=== PATIENT | female | born 1940 | race Caucasian/White ===

== ENCOUNTER 2021-04-11 12:46 | Inpatient (IN) ==
--- NOTE | 2021-04-11 13:46 | Emergency Department Note ---
Impression & Plan Nausea, Weakness, COVID-19 ED Provider Note INFORMANT: Patient ED PROVIDER(S): Gaston Knapp MD CHIEF COMPLAINT: Nausea PLAN: Disposition: Admitted Condition: Good Outpatient prescription management: none Referral: None MEDICAL DECISION MAKING: Patient presented to emergency department because of concerns about nausea. She was Covid positive last week. Per protocol a repeat Covid test was done and was positive. The patient was hydrated. She was given Zofran. Her chest x-ray was concerning for infiltrates. Her CBC and chemistry panels were unremarkable. The patient's ECG showed a sinus rhythm. The patient's oxygen saturation did drop down. She did require supplemental oxygen. The patient was given IV dexamethasone. I did discuss this with the patient's son who is a physician. The patient will need to be admitted. Consultation was made with the [facility] service. The patient was discussed with Dr. Celestin and admitted for further management. Triage Nursing notes reviewed and agree them. Vital Signs: reviewed and remarkable for no significant abnormalities Differential diagnosis: Complication of COVID-19, infection, dehydration, metabolic abnormality, hypo/hyperglycemia, electrolyte disturbance, anemia, hypoxia, cardiac sources, intracerebral event, toxicologic, neurologic, as well as other pathologies. Diagnostics interpreted by me: ECG: Sinus rhythm with PVCs at 97 bpm. QT interval [address] elevation or depression. No PVCs or PACs. Cardiac Monitoring: Cardiac monitoring ordered by me: The patient was placed on continuous cardiac monitoring and observed. It revealed a normal sinus rhythm at 88 beats per minute . Imaging studies: Chest x-ray is concerning for atypical infiltrates consistent with Covid CT imaging of the chest does not reveal any evidence of clear pulmonary embolism. Radiology concerned about timing of bolus. However the patient does have bilateral infiltrates concerning for Covid pneumonia. HPI: The patient is a 80 year old female who presents to the Emergency Room with complaints of nausea. This started over the last few days and is persisting despite compazine. The patient also notes the following associated symptoms, cough and weakness. The patient has been taking hydroxychloroquine for rel ieving factors. Current pain is rated as 0/10. She also noted diarrhea which changed to constipation. The patient was diagnosed with Covid last week and admitted to the [facility]. She stated she received a bag of fluids and nothing more. Her son who is a physician in [place] prescribed her the hydroxychloroquine. The patient think she has been symptomatic for over 10 days. Pt denies LOC, headache, fevers, chills, diaphoresis, visual changes, neck pain, chest pain, breathing difficulties, vomiting, abdominal pain, back pain, melena, hematochezia, urinary symptoms, numbness, lymphadenopathy, rash, or other complaints. ROS: See above HPI for pertinent positives & negatives. A total of 10 systems reviewed and were otherwise negative. PAST MEDICAL HISTORY:See Below , sleep apnea, COVID-19 PAST SURGICAL HISTORY:See Below, FAMILY HISTORY:See Below SOCIAL HISTORY:See Below, retired HOME MEDICATIONS:See Below ALLERGIES:See Below VITALS:See Below PHYSICAL EXAMINATION: GENERAL: Awake, alert, mildly ill-appearing, in no distress HENT: Normocephalic, atraumatic. Oropharynx unremarkable. EYES: Normal conjunctiva. Sclera non-icteric. NECK: Inspection normal. Non-tender. Supple. No nuchal rigidity. FROM. No masses. RESPIRATORY: Clear to auscultation. No wheezes. No rales. Normal respiratory effort. CARDIAC: Normal rate. Normal rhythm. No murmurs. No rubs. Extremities warm and well perfused. Pulses equal. No JVD. GI: Soft, non-distended. No tenderness to palpation. No rebound or guarding. No masses. RECTAL: Deferred. MUSCULOSKELETAL: Atraumatic. Chest examination reveals no tenderness. The back is symmetrical on inspection without obvious abnormality. There is no CVA tenderness to palpation. No joint edema. LOWER EXTREMITIES: Calves are equal size bilaterally and non-tender. Trace edema. No discoloration. NEURO: Normal sensorium. No sensory or motor deficits noted. SKIN: No rash or jaundice noted. Gaston Knapp MD Past Med/Surg History Medical History Coughing Dyspnea on exertion Morbid obesity due to excess calories Severe obstructive sleep apnea Upper airway cough syndrome Social History Smoking Status: Former smoker Tobacco Type: Cigarettes Feels Safe at Home: Yes Allergies Allergies Allergy/AdvReac Type Severity Reaction Status Date / Time codeine Allergy Mild Unknown Verified 04/11/21 16:08 Home Meds Home Medications Medication Instructions Recorded Confirmed bupropion HCl 150 mg 24 hr tablet, 150 mg PO DAILY 04/11/21 04/11/21 extended release difluprednate 0.05 % eye drops 1 drp OPL UD 04/11/21 04/11/21 (Durezol) hydroxychloroquine 200 mg tablet 200 mg PO BID 04/11/21 04/11/21 olmesartan 20 mg tablet 20 mg PO DAILY 04/11/21 04/11/21 paroxetine HCl 10 mg tablet 10 mg PO DAILY 04/11/21 04/11/21 prochlorperazine maleate 10 mg 10 mg PO Q6 04/11/21 04/11/21 tablet Results & Data (ED) Vital Signs Vital Signs - 24 hr 04/11/21 12:51 04/11/21 13:46 04/11/21 14:01 Temperature 36.9 C Temperature Source Temporal Artery Scan Pulse Rate 88 100 H 96 H Pulse Rate [Right Finger] Pulse Rate from SpO2 Sensor 94 H Respiratory Rate 20 30 H 24 Respiratory Effort / Characteristics Non-Labored Spontaneous Respiratory Depth Normal Blood Pressure 114/64 Blood Pressure [Left Arm] Blood Pressure Mean 80 81 Blood Pressure Mean [Left Arm] Pulse Oximetry 95 92 91 Oxygen Delivery Method Room Air Room Air Room Air Oxygen Flow Rate Sepsis Recent Fever Within 48 Hours No Sepsis New/Unexplained Change in Mental Status N/A Sepsis Action Taken by Nursing No Action Required 04/11/21 15:02 04/11/21 15:10 04/11/21 15:25 Temperature Temperature Source Pulse Rate 90 94 H Pulse Rate [Right Finger] Pulse Rate from SpO2 Sensor 92 H 93 H 119 H Respiratory Rate 22 22 32 H Respiratory Effort / Characteristics Respiratory Depth Blood Pressure Blood Pressure [Left Arm] Blood Pressure Mean Blood Pressure Mean [Left Arm] Pulse Oximetry 91 93 83 L Oxygen Delivery Method Room Air Oxygen Flow Rate Sepsis Recent Fever Within 48 Hours Sepsis New/Unexplained Change in Mental Status Sepsis Action Taken by Nursing 04/11/21 15:30 04/11/21 15:40 04/11/21 15:50 Temperature Temperature Source Pulse Rate 105 H 96 H 95 H Pulse Rate [Right Finger] 96 H Pulse Rate from SpO2 Sensor 105 H 79 84 Respiratory Rate 24 24 31 H Respiratory Effort / Characteristics Spontaneous Labored Respiratory Depth Blood Pressure Blood Pressure [Left Arm] 110/64 Blood Pressure Mean Blood Pressure Mean [Left Arm] 79 Pulse Oximetry 93 95 96 Oxygen Delivery Method Nasal Cannula Nasal Cannula Nasal Cannula Oxygen Flow Rate 2 2 2 Sepsis Recent Fever Within 48 Hours Sepsis New/Unexplained Change in Mental Status Sepsis Action Taken by Nursing 04/11/21 16:01 04/11/21 17:01 04/11/21 18:03 Temperature Temperature Source Pulse Rate 92 H 93 H 90 Pulse Rate [Right Finger] Pulse Rate from SpO2 Sensor 91 H 89 87 Respiratory Rate 26 H 30 H 24 Respiratory Effort / Characteristics Respiratory Depth Blood Pressure 109/73 105/63 Blood Pressure [Left Arm] Blood Pressure Mean 85 77 Blood Pressure Mean [Left Arm] Pulse Oximetry 97 98 100 Oxygen Delivery Method Nasal Cannula Nasal Cannula Nasal Cannula Oxygen Flow Rate 2 2 2 Sepsis Recent Fever Within 48 Hours Sepsis New/Unexplained Change in Mental Status Sepsis Action Taken by Nursing 04/11/21 19:43 04/11/21 19:50 04/11/21 20:00 Temperature Temperature Source Pulse Rate 85 83 93 H Pulse Rate [Right Finger] Pulse Rate from SpO2 Sensor 66 70 93 H Respiratory Rate 22 22 17 Respiratory Effort / Characteristics Respiratory Depth Blood Pressure Blood Pressure [Left Arm] Blood Pressure Mean Blood Pressure Mean [Left Arm] Pulse Oximetry 96 95 95 Oxygen Delivery Method Nasal Cannula Nasal Cannula Nasal Cannula Oxygen Flow Rate 2 2 2 Sepsis Recent Fever Within 48 Hours Sepsis New/Unexplained Change in Mental Status Sepsis Action Taken by Nursing 04/11/21 20:10 Temperature Temperature Source Pulse Rate 88 Pulse Rate [Right Finger] Pulse Rate from SpO2 Sensor 87 Respiratory Rate 22 Respiratory Effort / Characteristics Respiratory Depth Blood Pressure Blood Pressure [Left Arm] Blood Pressure Mean Blood Pressure Mean [Left Arm] Pulse Oximetry 95 Oxygen Delivery Method Nasal Cannula Oxygen Flow Rate 2 Sepsis Recent Fever Within 48 Hours Sepsis New/Unexplained Change in Mental Status Sepsis Action Taken by Nursing Laboratory Data Result diagrams: 04/11/21 15:04 04/11/21 15:04 Lab Results 04/11/21 04/11/21 04/11/21 Range/Units 14:10 14:10 15:04 WBC 6.54 (4.8-10.8) K/uL RBC 4.45 (4.2-5.4) M/uL Hgb 13.6 (12.0-16.0) g/dL Hct 40.6 (37-47) % MCV 91.2 (80-100) fL MCH 30.6 (25-34) pg MCHC 33.5 (32-36) g/dL RDW Std Deviation 44.2 (36.4-46.3) fL RDW Coeff of Kelvin 13.2 (11.5-14.5) % Plt Count 280 (130-400) K/uL MPV 10.1 (7.4-10.4) fL Immature Gran % (Auto) 0.3 % Neut % (Auto) 71.7 % Lymph % (Auto) 15.7 % [place] % (Auto) 11.9 % Eos % (Auto) 0.2 % Baso % (Auto) 0.2 % Neut # (Auto) 4.69 (1.4-6.5) K/uL Lymph # (Auto) 1.03 L (1.2-3.4) K/uL Forsyth # (Auto) 0.78 H (0.11-0.59) K/uL Eos # (Auto) 0.01 (0-0.5) K/uL Baso # (Auto) 0.01 (0-0.2) K/uL Immature Gran # (Auto) 0.02 (0.00-0.02) K/uL Sodium (136-145) mmol/L Potassium (3.5-5.1) mmol/L Chloride (98-107) mmol/L Carbon Dioxide (21-32) mmol/L Anion Gap (3-11) BUN (7-18) mg/dl Creatinine (0.6-1.2) mg/dl Est Cr Clr Drug Dosing ml/min Est GFR ( Amer) ml/min Est GFR (Non-Af Amer) ml/min BUN/Creatinine Ratio (10-20) Glucose (70-99) mg/dl Calcium (8.5-10.1) mg/dl Magnesium (1.8-2.4) mg/dl Total Bilirubin (0.2-1) mg/dl Direct Bilirubin (0-0.2) mg/dl AST (15-37) U/L ALT (12-78) U/L Alkaline Phosphatase (45-117) U/L Troponin I (0-0.045) ng/ml Total Protein (6.4-8.2) gm/dl Albumin (3.4-5.0) gm/dl Globulin (2.5-4.0) gm/dl Albumin/Globulin Ratio (0.9-2) Procalcitonin (0-0.5) ng/ml TSH (0.300-4.500) uIu/ml Free T4 (0.8-1.6) ng/dl COVID-19 Eval Order Covid19 at [facility] SARS-CoV-2 (PCR) POSITIVE A* (Negative) 04/11/21 04/11/21 Range/Units 15:04 15:04 WBC (4.8-10.8) K/uL RBC (4.2-5.4) M/uL Hgb (12.0-16.0) g/dL Hct (37-47) % MCV (80-100) fL MCH (25-34) pg MCHC (32-36) g/dL RDW Std Deviation (36.4-46.3) fL RDW Coeff of Kelvin (11.5-14.5) % Plt Count (130-400) K/uL MPV (7.4-10.4) fL Immature Gran % (Auto) % Neut % (Auto) % Lymph % (Auto) % Forsyth % (Auto) % Eos % (Auto) % Baso % (Auto) % Neut # (Auto) (1.4-6.5) K/uL Lymph # (Auto) (1.2-3.4) K/uL Forsyth # (Auto) (0.11-0.59) K/uL Eos # (Auto) (0-0.5) K/uL Baso # (Auto) (0-0.2) K/uL Immature Gran # (Auto) (0.00-0.02) K/uL Sodium 137 (136-145) mmol/L Potassium 3.8 (3.5-5.1) mmol/L Chloride 104 (98-107) mmol/L Carbon Dioxide 29 (21-32) mmol/L Anion Gap 4.0 (3-11) BUN 28 H (7-18) mg/dl Creatinine 1.01 (0.6-1.2) mg/dl Est Cr Clr Drug Dosing 47.9 ml/min Est GFR ( Amer) 61.3 ml/min Est GFR (Non-Af Amer) 52.9 ml/min BUN/Creatinine Ratio 28.0 H (10-20) Glucose 99 (70-99) mg/dl Calcium 8.7 (8.5-10.1) mg/dl Magnesium 2.3 (1.8-2.4) mg/dl Total Bilirubin 0.5 (0.2-1) mg/dl Direct Bilirubin 0.1 (0-0.2) mg/dl AST 49 H (15-37) U/L ALT 48 (12-78) U/L Alkaline Phosphatase 86 (45-117) U/L Troponin I < 0.015 (0-0.045) ng/ml Total Protein 6.4 (6.4-8.2) gm/dl Albumin 2.7 L (3.4-5.0) gm/dl Globulin 3.7 (2.5-4.0) gm/dl Albumin/Globulin Ratio 0.7 L (0.9-2) Procalcitonin < 0.05 (0-0.5) ng/ml TSH 0.009 L (0.300-4.500) uIu/ml Free T4 1.96 H (0.8-1.6) ng/dl COVID-19 Eval Order SARS-CoV-2 (PCR) (Negative) Administered Medications Sodium Chloride (Nss 1000ml) 1,000 mls @ 125 mls/hr IV .Q8H STA Stop: 04/11/21 23:16 Last Infusion: 04/11/21 17:42 Dose: 0 mls/hr Documented by: [id number] Admin: 04/11/21 16:46 Dose: 125 mls/hr Documented by: [id number] Discontinued Medications Dexamethasone Sodium Phosphate (DexamethasonePf 10 Mg/Ml Vial) 6 mg IV NOW ONE Stop: 04/11/21 16:32 Last Admin: 04/11/21 16:44 Dose: 6 mg Documented by: [id number] Sodium Chloride (Nss 1000ml) 500 mls @ 999 mls/hr IV .Q31M ONE Stop: 04/11/21 15:47 Last Infusion: 04/11/21 16:18 Dose: 0 mls/hr Documented by: [id number] Admin: 04/11/21 15:47 Dose: 999 mls/hr Documented by: [id number] Remdesivir 200 mg/ Sodium (Chloride) 250 mls @ 125 mls/hr IV ONE STA; Protocol Stop: 04/11/21 19:38 Last Admin: 04/11/21 18:14 Dose: 125 mls/hr Documented by: [id number] Ioversol (Optiray 320 125ml) 80 ml IV ONCE ONE Stop: 04/11/21 17:36 Last Admin: 04/11/21 17:36 Dose: 80 ml Documented by: [id number] Ondansetron HCl (Ondansetron Inj 2 Mg/Ml 2 Ml Vial) 4 mg IV NOW STA Stop: 04/11/21 15:17 Last Admin: 04/11/21 15:45 Dose: 4 mg Documented by: [id number] Imaging Data Radiologist's Impression: Chest X-Ray 04/11/21 13:14 XR chest 1V portable CLINICAL HISTORY: nausea, +COVID COMPARISON STUDY: September 14, 2019 FINDINGS: No pneumothorax. No pleural effusion. Mild atelectasis/infiltrates are seen within bilateral basis. Also ill-defined opacities are seen at the peripheral aspect of the right mid to lower lung. Diffuse reticular nodular prominence of pulmonary interstitium are seen within bilateral mid to lower lungs. Cardiomediastinal silhouette is within normal limits in size. No significant pulmonary vascular congestion.. Aorta is calcified. Osseous structures: Osteopenia. Degenerative changes of the spine. IMPRESSION: 1. Opacities at bilateral bases and peripheral aspect of the right mid to lower lung might represent infiltrates. Possible atelectasis at bilateral bases. Above-mentioned findings could represent atypical pneumonia/COVID. 2. Atherosclerosis. ACT 112: Negative or not required by law. The above report was generated using voice recognition software. It may contain grammatical, syntax or spelling errors. Electronically signed by: Maria Fernanda Sanchez DO 04/11/2021 2:13 PM Chest CTA 04/11/21 16:31 CT ANGIOGRAM OF THE CHEST CLINICAL HISTORY: hypoxia, +covid COMPARISON STUDY: No previous studies for comparison. TECHNIQUE: Following the IV administration of 80 mL of Optiray, CT angiogram of the thorax was performed from the thoracic inlet to the lung bases utilizing the pulmonary embolus protocol. Images are reviewed in the axial, sagittal, and coronal planes. IV contrast was administered without complication. MIP imaging was performed. A dose lowering technique was utilized adhering to the principl es of VALENTE. CT DOSE: 673.53 mGy.cm FINDINGS: Insufficient opacification for adequate evaluation for pulmonary embolus. Possibly flow artifact is seen within left upper lobe pulmonary artery branches. No evidence of right heart strain. Main pulmonary artery is nondilated. Heart is normal in size without pericardial effusion. Mild coronary calcifications are seen. There is no axillary, supra clavicle or internal mammary lymphadenopathy seen. Innumerable pulmonary nodules are seen within mediastinum and right hilum measuring up to 1.0 cm in short axis (4/169). Visualized portion of thyroid gland is increase in size with few ill-defined partially calcified nodules within right thyroid lobe. Evaluation is limited due to motion artifact as well as some hardening artifact from intravenous contrast within vascular structures and from overlying metallic density. Esophagus is patulous. Moderate hiatal hernia is seen. Thoracic aorta is normal in caliber, slightly tortuous with scattered ca lcifications of its wall. Tracheobronchial tree is patent. Patchy groundglass opacities are seen predominantly within bilateral lower lungs in mostly peripheral distribution which could be seen in atypical pneumonia or/port.. Mild architectural distortion is seen at subpleural aspect of the bilateral lower lobes. No pleural effusions are visualized. Limited evaluation of upper abdominal viscera shows nodularity of the left adrenal gland and course calcification within partially visualized liver parenchyma. Osseous structures: Osteopenia and multilevel degenerative changes of the spine. No definite aggressive osseous lesions are seen. IMPRESSION: 1. No definite filling defect is seen within pulmonary artery to suggest pulmonary embolus however opacification within main pulmonary artery is insufficient for adequate pulmonary embolus evaluation. 2. Patchy groundglass opacities within bilateral lower lobes in predominantly peripheral distribution which could be seen in atypical pneumonia/COVID. 3. Moderate hiatal hernia. 4. Ill-defined calcified nodules within right thyroid lobe as detailed above. Please correlate above-mentioned findings with prior history of thyroid disease. Further evaluation with thyroid ultrasound might be considered if clinically indicated. 5. Multiple mediastinal and hilar lymph nodes, could be reactive. ACT 112: Negative or not required by law. The above report was generated using voice recognition software. It may contain grammatical, syntax or spelling errors. Electronically signed by: Maria Fernanda Sanchez DO 04/11/2021 6:09 PM Discharge Plan Visit Data Chief Complaint: Nausea Stated Complaint: NAUSEATED, POSITIVE COVID ED Provider: Gaston Knapp Discharge Problem: Nausea, Weakness, COVID-19 Forms Stand Alone Forms: My [facility] Prescriptions Prescriptions: No Action paroxetine HCl 10 mg tablet 10 mg PO DAILY RF: 0 prochlorperazine maleate 10 mg tablet 10 mg PO Q6 RF: 0 hydroxychloroquine 200 mg tablet 200 mg PO BID RF: 0 olmesartan 20 mg tablet 20 mg PO DAILY RF: 0 bupropion HCl 150 mg tablet extended release 24 hr 150 mg PO DAILY RF: 0 Durezol 0.05 % drops 1 drp OPL UD RF: 0 Referrals Referrals: Omar James [Primary Care Provider] -
--- NOTE | 2021-04-11 14:15 | XRay Report ---
XR chest 1V portable CLINICAL HISTORY: nausea, +COVID COMPARISON STUDY: September 14, 2019 FINDINGS: No pneumothorax. No pleural effusion. Mild atelectasis/infiltrates are seen within bilateral basis. Also ill-defined opacities are seen at the peripheral aspect of the right mid to lower lung. Diffuse reticular nodular prominence of pulmonary interstitium are seen within bilateral mid to lowe r lungs. Cardiomediastinal silhouette is within normal limits in size. No significant pulmonary vascular congestion.. Aorta is calcified. Osseous structures: Osteopenia. Degenerative changes of the spine. IMPRESSION: 1. Opacities at bilateral bases and peripheral aspect of the right mid to lower lung might represent infiltrates. Possible atelectasis at bilateral bases. Above-mentioned findings could represent atypi neel pneumonia/COVID. 2. Atherosclerosis. ACT 112: Negative or not required by law. The above report was generated using voice recognition software. It may contain grammatical, syntax o r spelling errors. Electronically signed by: Maria Fernanda Sanchez DO 04/11/2021 2:13 PM
[2021-04-11] MEDS ORDERED: ONDANSETRON INJ 2 MG/ML 2 ML VIAL IV STA (15:16)
[2021-04-11] MEDS ORDERED: SODIUM CHLORIDE 0.9% 1000ML 1,000 ML IV STA (15:17)
[2021-04-11] MEDS ORDERED: SODIUM CHLORIDE 0.9% 1000ML 500 ML IV ONE (15:17)
[2021-04-11 15:33] LABS: Basophils # (auto) 0.01 K/uL (0-0.2); Basophils % (auto) 0.2 %; Eosinophils # (auto) 0.01 K/uL (0-0.5); Eosinophils % (auto) 0.2 %; Hematocrit (blood only) 40.6 % (37-47); Hemoglobin 13.6 g/dL (12.0-16.0); Immature Granulocytes # (auto) 0.02 K/uL (0.00-0.02); Immature Granulocytes % (auto) 0.3 %; Lymphocytes # (auto) 1.03 K/uL (1.2-3.4); Lymphocytes % (auto) 15.7 %; Mean Corpuscular Hemoglobin 30.6 pg (25-34); Mean Corpuscular Hgb Conc 33.5 g/dL (32-36); Mean Corpuscular Volume 91.2 fL (80-100); Mean Platelet Volume 10.1 fL (7.4-10.4); Monocytes # (auto) 0.78 K/uL (0.11-0.59); Monocytes % (auto) 11.9 %; Neutrophils # (auto) 4.69 K/uL (1.4-6.5); Neutrophils % (auto) 71.7 %; Platelet Count 280 K/uL (130-400); RDW Coefficient of Variation 13.2 % (11.5-14.5); RDW Standard Deviation 44.2 fL (36.4-46.3); Red Blood Count 4.45 M/uL (4.2-5.4); White Blood Count 6.54 K/uL (4.8-10.8)
[2021-04-11 16:02] LABS: Alanine Aminotransferase 48 U/L (12-78); Albumin Level 2.7 gm/dl (3.4-5.0); Aspartate Aminotransferase 49 U/L (15-37); Blood Urea Nitrogen 28 mg/dl (7-18); Calcium 8.7 mg/dl (8.5-10.1); Carbon Dioxide 29 mmol/L (21-32); Chloride 104 mmol/L (98-107); Creatinine Clr Calc Pharmacy 47.9 ml/min; Est GFR (African American) 61.3 ml/min; Est GFR (Non-African American) 52.9 ml/min; Glucose 99 mg/dl (70-99); Magnesium 2.3 mg/dl (1.8-2.4); Potassium 3.8 mmol/L (3.5-5.1); Sodium 137 mmol/L (136-145)
[2021-04-11 16:13] LABS: Albumin Globulin Ratio 0.7 (0.9-2); Alkaline Phosphatase 86 U/L (45-117); Bilirubin,Total 0.5 mg/dl (0.2-1); Globulin 3.7 gm/dl (2.5-4.0); Thyroid Stimulating Hormone 0.009 uIu/ml (0.300-4.500); Total Protein 6.4 gm/dl (6.4-8.2); Troponin I < 0.015 ng/ml (0-0.045)
[2021-04-11 16:28] LABS: T4 Free Thyroxine 1.96 ng/dl (0.8-1.6)
[2021-04-11] MEDS ORDERED: dexAMETHasone**PF** 10 MG/ML VIAL IV ONE (16:31)
--- NOTE | 2021-04-11 17:33 | History & Physical Report ---
Date of Service April 11, 2021 Assessment & Plan (1) COVID-19: (2) Upper airway cough syndrome: (3) Wheezing: (4) Weakness: (5) Nausea: (6) Dyspnea on exertion: (7) Morbid obesity due to excess calories: (8) Sick-euthyroid syndrome: Plan: Remdesivir, Dex, O2, Continue OP meds, Monitor daily labs, Isolation. Pulm c/s if declines, CPAP, Inhalers, DVT Pfx CXR-Opacities at bilateral bases and peripheral aspect of the right mid to lower lung might represent infiltrates. Possible atelectasis at bilateral bases. Above-mentioned findings could represent atypical pneumonia/COVID. History of Present Illness Chief Complaint: Nausea, Weakness, Cough, SOB Primary Care Provider: Omar James 80 yo female c PMH of Anxiety, HTN, Obesity, OSAS, and COVID-19 who presents to the Emergency Room with complaints of nausea. This started over the last few days and is persisting despite compazine. The patient also notes the following associated symptoms, cough and weakness. The patient has been taking hydroxychloroquine and zinc which was prescribed by her son. She noted diarrhea which changed to constipation. The patient was diagnosed with Covid last week and admitted to the [facility] on 04/06. There she had N/V/D and was DCd on 04/08. She never required Dex or Remdesivir because her O2 sats were 94% or greater. It was reported by EMS prior to arriving at [facility] that she was 88%, but all POX at [facility] were in the mid to high 90s. She reports that since Friday she's been declining. PMH-Anxiety, HTN, Obesity, Covid PSH-Breast Biopsy Soc-Former tobacco, quit January 2004, Occas etoh FH-Sister, Daughter, and Niece all c Breast CA Allergies Allergy/AdvReac Type Severity Reaction Status Date / Time codeine Allergy Mild Unknown Verified 04/11/21 16:08 Home Medications Medication Instructions Recorded Confirmed Type bupropion HCl 150 mg 24 hr tablet, 150 mg PO DAILY 04/11/21 04/11/21 History extended release difluprednate 0.05 % eye drops 1 drp OPL UD 04/11/21 04/11/21 History (Durezol) hydroxychloroquine 200 mg tablet 200 mg PO BID 04/11/21 04/11/21 History olmesartan 20 mg tablet 20 mg PO DAILY 04/11/21 04/11/21 History paroxetine HCl 10 mg tablet 10 mg PO DAILY 04/11/21 04/11/21 History prochlorperazine maleate 10 mg 10 mg PO Q6 04/11/21 04/11/21 History tablet Past Med/Surg History Medical History Coughing Dyspnea on exertion Morbid obesity due to excess calories Severe obstructive sleep apnea Upper airway cough syndrome Social History Smoking Status: Former smoker Tobacco Type: Cigarettes Feels Safe at Home: Yes Review of Systems Review of Systems: ROS-No Headache, No Visual Changes, + Nausea, No Vomiting, No Fever, No Chills, No Neck Pain or Stiffness, No Chest Pain, No Palpitations, + SOB, + KUMAR, + Cough, No Sputum, + Wheezing, No Abdominal Pain, No Diarrhea, No Hematemesis, No Hemoptysis, No Unexpected Weight Loss, No Flank pain, No Melena, No Hematochezia, No Frequency, No Urgency, No Burning, No Hematuria, No Rashes, No Diaphoresis. Appetite is decreased, +weakness. Physical Exam Physical Exam: Physical Exam Gen-AAO x 3, NAD, Afebrile, Audible wheeze Head-NCAT, EOMI, PERRLA, Anicteric Sclera, No Posterior Pharyngeal Erythema Neck-Supple, No JVD, No Thyromegaly, No Masses, No LAD, No Bruits Lungs-Coarse BS Bilaterally, No Rales, No Rhonchi, + Wheezing, No Crepitus Chest-No S4, +S1, +S2, No S3, No Murmurs, No Rubs, No Gallops, No Ectopy Abdomen-Soft, Bowel Sounds Present, Non Tender, Non Distended, No Hepatomegaly, No Splenomegaly, No Palpable Masses, No Rebound, No Rigidity, No Guarding Musculoskeletal-Full Range of Motion Bilaterally, No CVAT Extremities-No Cyanosis, No Clubbing, No Edema Nuero-Cranial Nerves II-XII grossly intact, Motor WNL, DTRs WNL, Strength WNL, Non Focal Psych-Normal Mood Results & Data Results & Data ([facility]) Vital Signs (Past 12 Hours) Vital Signs Temp Pulse Pulse Resp BP BP Pulse Ox 04/11/21 17:01 93 H 30 H 105/63 98 04/11/21 16:01 92 H 26 H 109/73 97 04/11/21 15:50 95 H 96 H 31 H 110/64 96 04/11/21 15:40 96 H 24 95 04/11/21 15:30 105 H 24 93 04/11/21 15:25 32 H 83 L 04/11/21 15:10 94 H 22 93 04/11/21 15:02 90 22 91 04/11/21 14:01 96 H 24 91 04/11/21 13:46 100 H 30 H 92 04/11/21 12:51 36.9 C 88 20 114/64 95 Laboratory Results Allergies codeine Allergy (Mild, Verified 04/11/21 16:08) Unknown Height/Weight/Isolation Height 5 ft Weight 99.6 kg Isolation Type COVID Precautions Chemistry 04/11/21 15:04 Sodium 137 Potassium 3.8 Chloride 104 Carbon Dioxide 29 Anion Gap 4.0 BUN 28 H Creatinine 1.01 Glucose 99 TSH low, T4 slightly high Procal Negative Code Status & VTE Plan Code Status full
[2021-04-11] MEDS ORDERED: OPTIRAY 320 125ml IV ONE (17:35)
[2021-04-11] MEDS ORDERED: REMDESIVIR 200 MG in SODIUM CHLORIDE 0.9% 210 ML IV STA (17:39)
--- NOTE | 2021-04-11 17:55 | Electrocardiogram Report ---
Test Reason : Blood Pressure : / mmHG Vent. Rate : 097 BPM Atrial Rate : 097 BPM P-R Int : 178 ms QRS Dur : 076 ms QT Int : 344 ms P-R-T Axes : 069 041 064 degrees QTc Int : 436 ms Poor data quality, interpretation may be adversely affected Sinus rhythm with frequent Premature ventricular complexes Low voltage QRS Borderline ECG No previous ECGs available Confirmed by Elian Butts ([id number]) on 04/11/2021 5:55:15 PM Referred By: Confirmed By:Elian Butts
[2021-04-11 18:04] LABS: Bilirubin Direct 0.1 mg/dl (0-0.2)
--- NOTE | 2021-04-11 18:11 | CT Scan Report ---
CT ANGIOGRAM OF THE CHEST CLINICAL HISTORY: hypoxia, +covid COMPARISON STUDY: No previous studies for comparison. TECHNIQUE: Following the IV administration of 80 mL of Optiray, CT angiogram of the thorax was perfor med from the thoracic inlet to the lung bases utilizing the pulmonary embolus protocol. Images are re viewed in the axial, sagittal, and coronal planes. IV contrast was administered without complication. MIP imaging was performed. A dose lowering technique was utilized adhering to the principles of ALA RA. CT DOSE: 673.53 mGy.cm FINDINGS: Insufficient opacification for adequate evaluation for pulmonary embolus. Possibly flow artifact is s een within left upper lobe pulmonary artery branches. No evidence of right heart strain. Main pulmonary artery is nondilated. Heart is normal in size without pericardial effusion. Mild coronary calcifications are seen. There is no axillary, supra clavicle or internal mammary lymphadenopathy seen. Innumerable pulmonary nodules are seen within mediastinum and right hilum measuring up to 1.0 cm in short axis (4/169). Visualized portion of thyroid gland is increase in size with few ill-defined partially calcified nodu les within right thyroid lobe. Evaluation is limited due to motion artifact as well as some hardening artifact from intravenous contrast within vascular structures and from overlying metallic density. Esophagus is patulous. Moderate hiatal hernia is seen. Thoracic aorta is normal in caliber, slightly tortuous with scattered calcifications of its wall. Tracheobronchial tree is patent. Patchy groundglass opacities are seen predominantly within bilateral lower lungs in mostly peripheral distribution which could be seen in atypical pneumonia or/port.. Mild architectural distortion is seen at subpleural aspect of the bilateral lower lobes. No pleural effusions are visualized. Limited evaluation of upper abdominal viscera shows nodularity of the left adrenal gland and course c alcification within partially visualized liver parenchyma. Osseous structures: Osteopenia and multilevel degenerative changes of the spine. No definite aggressi ve osseous lesions are seen. IMPRESSION: 1. No definite filling defect is seen within pulmonary artery to suggest pulmonary embolus however o pacification within main pulmonary artery is insufficient for adequate pulmonary embolus evaluation. 2. Patchy groundglass opacities within bilateral lower lobes in predominantly peripheral distributio n which could be seen in atypical pneumonia/COVID. 3. Moderate hiatal hernia. 4. Ill-defined calcified nodules within right thyroid lobe as detailed above. Please correlate above -mentioned findings with prior history of thyroid disease. Further evaluation with thyroid ultrasound might be considered if clinically indicated. 5. Multiple mediastinal and hilar lymph nodes, could be reactive. ACT 112: Negative or not required by law. The above report was generated using voice recognition software. It may contain grammatical, syntax o r spelling errors. Electronically signed by: Maria Fernanda Sanchez DO 04/11/2021 6:09 PM
--- NOTE | 2021-04-11 22:07 | Communication Note ---
Date of Service: April 11, 2021 Admitting MD saini with remaining hydroxychloroquine course prescribed by patient's physician son based in [place] after telephone conversation. Hospital pharmacist later notified undersigned of hydroxychloroquine's potential inhibition of antiviral effect of Remdesivir. Hold hydroxychloroquine for now. Will request AM provider to communicate hospital pharmacy recommendations to patient's son.
[2021-04-11] MEDS ORDERED: HYDROXYCHLOROQUINE SULFATE 200 MG TAB PO SCH (23:45)
[2021-04-11] MEDS ORDERED: DIFLUPREDNATE 0.05% OPL SCH (23:48)
[2021-04-11] MEDS ORDERED: ALUMINUM/MAGNESIUM SUSP 30 ML UDC PO PRN (23:48)
[2021-04-12] MEDS: HEPARIN SOD 5,000 UNIT/0.5 ML VIAL SQ SCH ×4 (00:57→21:26)
[2021-04-12] MEDS: CHOLECALCIFEROL 400 UNITS 10 MCG TAB PO SCH ×2 (00:58→08:23)
[2021-04-12] MEDS: ALBUTEROL HFA 8 GM INHALER INH SCH ×5 (03:36→19:59)
[2021-04-12] MEDS: ZINC SULFATE 220 MG CAPSULE PO SCH (08:22)
[2021-04-12] MEDS: PARoxetine HCL 10 MG TAB PO SCH (08:22)
[2021-04-12] MEDS: OLMESARTAN MEDOXOMIL 20 MG TAB PO SCH (08:23)
[2021-04-12] MEDS: PROCHLORPERAZINE MALEATE 10 MG TAB PO PRN (08:23)
[2021-04-12] MEDS: buPROPion XL 150 MG TABCR PO SCH (08:23)
[2021-04-12] MEDS: dexAMETHasone 6 MG in SYRINGE 0 ML IV SCH (08:52)
[2021-04-12 09:38] LABS: Basophils # (auto) 0.01 K/uL (0-0.2); Basophils % (auto) 0.2 %; Hematocrit (blood only) 38.9 % (37-47); Hemoglobin 12.8 g/dL (12.0-16.0); Immature Granulocytes # (auto) 0.03 K/uL (0.00-0.02); Immature Granulocytes % (auto) 0.7 %; Lymphocytes # (auto) 0.48 K/uL (1.2-3.4); Lymphocytes % (auto) 10.9 %; Mean Corpuscular Hgb Conc 32.9 g/dL (32-36); Mean Corpuscular Volume 91.1 fL (80-100); Mean Platelet Volume 9.9 fL (7.4-10.4); Monocytes % (auto) 9.1 %; Neutrophils # (auto) 3.47 K/uL (1.4-6.5); Neutrophils % (auto) 79.1 %; Platelet Count 274 K/uL (130-400); RDW Coefficient of Variation 13.5 % (11.5-14.5); RDW Standard Deviation 44.8 fL (36.4-46.3); Red Blood Count 4.27 M/uL (4.2-5.4); White Blood Count 4.39 K/uL (4.8-10.8)
[2021-04-12 10:13] LABS: Albumin Level 2.3 gm/dl (3.4-5.0); BUN Creatinine Ratio 29.1 (10-20); Calcium 8.3 mg/dl (8.5-10.1); Creatinine Clr Calc Pharmacy 57.3 ml/min; Est GFR (African American) 76.6 ml/min; Est GFR (Non-African American) 66.1 ml/min; Potassium 4.2 mmol/L (3.5-5.1)
[2021-04-12 10:15] LABS: Albumin Globulin Ratio 0.6 (0.9-2); Bilirubin,Total 0.3 mg/dl (0.2-1); Globulin 3.6 gm/dl (2.5-4.0); Total Protein 5.9 gm/dl (6.4-8.2)
--- NOTE | 2021-04-12 19:22 | Hospitalist Progress Note ---
Date of Service April 12, 2021 Assessment & Plan (1) COVID-19: (2) Nausea: (3) Sick-euthyroid syndrome: Plan: 80 yo F w/ PMH of Anxiety, HTN, Obesity, OSAS, and COVID-19 presented to ED 04/11 w/ c/o nausea. #. Nausea/loss of appetite Per patient she hasn't eaten well in last week or so due to nausea. Persisted despite compazine. After her recent diagnosis of COVID on 04/06, DC'd on 04/08. Never required Dexa or Remdesivir. she has been taking hydroxychloroquine per her physician son's recommendation likely secondary to COVID infection vs hydroxychloroquine use She didn't get Hydroxychloroquine while inpatient due to possible interaction with Remdesivir - patient's son updated about this 04/12. Improved and she ate good today morning. #. COVID 19 Diagnosed 04/06, on Remdesivir since 04/11 Lymphopenia noted, will monitor CBC daily. Admitting CXR and CTA chest s/o COVID findings, no PE noted. Currently on 3L O2, titrate O2 as needed. If need for O2 rises >6L will consider pulmonology consult c/w Remdesivir and Dexa. Will put on atacids for the duration of dexa as GI Px. will get CMP, PT/INR and Ferritin level on 04/14 #. Sick-Euthyroid syndrome TSH very low at 0.009 and fT4 elevated at 1.96 Will continue to monitor #. DVT Px: Hep SC. Admission and Anticipated Discharge Date Admission Date: April 11, 2021 Subjective Patient was lying down in bed, NAD, on RA/NC O2 [3]L. Patient denies Headache, Dizziness, Fever, Chills, Sore throat, Cough, Chest pain, palpitations, SOB, Belly pain, pain/burning while passing urine. Last Bowel movement [couple of days ago]. No issues overnight. Pt states that after many days she ate good today. Physical Exam Physical Exam: GENERAL: Alert and oriented x3. NAD, on 3L NC O2 HEENT: No pallor, no icterus. Pupils equal, round and reactive to light. Oral mucosa moist. NECK: No JVD, no neck masses. HEART: S1 and S2 heard. Regular rate and rhythm. No murmur, no gallop. RESPIRATORY SYSTEM: Normal AP diameter. No accessory muscle use. No wheezing, no crackles. ABDOMEN: Soft, bowel sounds present, nontender, no distention. CENTRAL NERVOUS SYSTEM: Alert and oriented x3. No facial droop. Speech is clear. Obeys simple commands. Moves extremities. EXTREMITIES: No edema, no erythema seen. Results & Data Results & Data ([facility]) Vital Signs (Past 12 Hours) Vital Signs Temp Pulse Resp BP BP Pulse Ox 04/12/21 15:47 36.8 C 99 H 20 114/68 94 04/12/21 15:34 94 H 18 95 04/12/21 14:13 94 04/12/21 11:48 36.4 C L 88 20 137/81 92 04/12/21 11:04 92 H 18 95 04/12/21 08:57 105 H 18 91 04/12/21 08:34 110 H 18 135/87 90 04/12/21 07:39 85 18 93 04/12/21 07:36 36.6 C 85 20 138/82 93
[2021-04-12] MEDS: REMDESIVIR 100 MG in SODIUM CHLORIDE 0.9% 230 ML IV SCH (20:16)
[2021-04-12] MEDS: SODIUM CHLORIDE 0.9% 10ML FLUSH IV SCH (21:27)
[2021-04-13] MEDS: HEPARIN SOD 5,000 UNIT/0.5 ML VIAL SQ SCH ×3 (05:46→21:01)
[2021-04-13 07:43] LABS: Alanine Aminotransferase 47 U/L (12-78); Aspartate Aminotransferase 31 U/L (15-37)
[2021-04-13] MEDS: ALBUTEROL HFA 8 GM INHALER INH SCH ×4 (08:10→19:34)
[2021-04-13] MEDS: OLMESARTAN MEDOXOMIL 20 MG TAB PO SCH (08:11)
[2021-04-13] MEDS: CHOLECALCIFEROL 400 UNITS 10 MCG TAB PO SCH (08:11)
[2021-04-13] MEDS: ZINC SULFATE 220 MG CAPSULE PO SCH (08:11)
[2021-04-13] MEDS: PARoxetine HCL 10 MG TAB PO SCH (08:12)
[2021-04-13] MEDS: PROCHLORPERAZINE MALEATE 10 MG TAB PO PRN (08:12)
[2021-04-13] MEDS: PANTOprazole 40 MG TAB PO SCH (08:12)
[2021-04-13] MEDS: buPROPion XL 150 MG TABCR PO SCH (08:12)
[2021-04-13] MEDS: dexAMETHasone 6 MG in SYRINGE 0 ML IV SCH (08:12)
--- NOTE | 2021-04-13 20:12 | Hospitalist Progress Note ---
Date of Service April 13, 2021 Assessment & Plan (1) COVID-19: (2) Nausea: (3) Sick-euthyroid syndrome: Plan: 80 yo F w/ PMH of Anxiety, HTN, Obesity, OSAS, and COVID-19 presented to ED 04/11 w/ c/o nausea. #. Nausea/loss of appetite Per patient she hasn't eaten well in last week or so due to nausea. Persisted despite compazine. After her recent diagnosis of COVID on 04/06, DC'd on 04/08. Never required Dexa or Remdesivir. she has been taking hydroxychloroquine per her physician son's recommendation likely secondary to COVID infection vs hydroxychloroquine use She didn't get Hydroxychloroquine while inpatient due to possible interaction with Remdesivir - patient's son updated about this 04/12. Improved and she is eating good. #. COVID 19 Diagnosed 04/06, on Remdesivir since 04/11 Lymphopenia noted, will monitor CBC daily. Admitting CXR and CTA chest s/o COVID findings, no PE noted. Currently on 3L O2, titrate O2 as needed. If need for O2 rises >6L will consider pulmonology consult c/w Remdesivir 04/12 and Dexa. c/w GI Px for the duration of dexa. will get CMP, PT/INR and Ferritin level on 04/14 #. Sick-Euthyroid syndrome TSH very low at 0.009 and fT4 elevated at 1.96 Will continue to monitor #. DVT Px: Hep SC. added miralax for constipation. Admission and Anticipated Discharge Date Admission Date: April 11, 2021 Subjective Patient was lying down in bed, NAD, on RA/NC O2 [3]L. Patient denies Headache, Dizziness, Fever, Chills, Sore throat, Chest pain, palpitations, SOB, Belly pain, pain/burning while passing urine. Last Bowel movement [couple of days ago]. No issues overnight. Pt states that after many days she ate good today. Has dry cough. Physical Exam Physical Exam: GENERAL: Alert and oriented x3. NAD, on 3L NC O2 HEENT: No pallor, no icterus. Pupils equal, round and reactive to light. Oral mucosa moist. NECK: No JVD, no neck masses. HEART: S1 and S2 heard. Regular rate and rhythm. No murmur, no gallop. RESPIRATORY SYSTEM: Normal AP diameter. No accessory muscle use. No wheezing, no crackles. ABDOMEN: Soft, bowel sounds present, nontender, no distention. CENTRAL NERVOUS SYSTEM: Alert and oriented x3. No facial droop. Speech is clear. Obeys simple commands. Moves extremities. EXTREMITIES: No edema, no erythema seen. Results & Data Results & Data ([facility]) Vital Signs (Past 12 Hours) Vital Signs Temp Pulse Pulse Resp BP Pulse Ox Pulse Ox 04/13/21 19:35 114 H 20 91 04/13/21 19:29 36.8 C 120 H 18 151/61 H 90 04/13/21 17:06 36.7 C 110 H 20 152/93 H 90 04/13/21 16:03 89 04/13/21 15:52 81 18 96 04/13/21 14:37 95 04/13/21 11:51 96 H 18 93 04/13/21 08:18 94 H 21 97 Pulse Ox 04/13/21 19:35 04/13/21 19:29 04/13/21 17:06 04/13/21 16:03 04/13/21 15:52 04/13/21 14:37 93 04/13/21 11:51 04/13/21 08:18
[2021-04-13] MEDS: REMDESIVIR 100 MG in SODIUM CHLORIDE 0.9% 230 ML IV SCH (20:14)
[2021-04-13] MEDS ORDERED: POLYETHYLENE (MIRALAX) 17 GM PACK PO STA (20:27)
[2021-04-13] MEDS: SODIUM CHLORIDE 0.9% 10ML FLUSH IV SCH (21:01)
[2021-04-14] MEDS: HEPARIN SOD 5,000 UNIT/0.5 ML VIAL SQ SCH ×3 (06:38→22:03)
[2021-04-14 07:32] LABS: Hematocrit (blood only) 41.4 % (37-47); Hemoglobin 13.8 g/dL (12.0-16.0); Mean Corpuscular Hemoglobin 30.3 pg (25-34); Mean Corpuscular Hgb Conc 33.3 g/dL (32-36); Mean Platelet Volume 10.4 fL (7.4-10.4); Platelet Count 379 K/uL (130-400); RDW Coefficient of Variation 13.4 % (11.5-14.5); RDW Standard Deviation 44.7 fL (36.4-46.3); Red Blood Count 4.55 M/uL (4.2-5.4); White Blood Count 12.18 K/uL (4.8-10.8)
[2021-04-14 07:42] LABS: INR 1.1 (0.9-1.1); Prothrombin Time 11.2 Seconds (9.0-12.0)
[2021-04-14 08:04] LABS: Albumin Level 2.4 gm/dl (3.4-5.0); BUN Creatinine Ratio 33.7 (10-20); Calcium 8.4 mg/dl (8.5-10.1); Est GFR (African American) 71.4 ml/min; Est GFR (Non-African American) 61.6 ml/min; Potassium 4.5 mmol/L (3.5-5.1)
[2021-04-14 08:09] LABS: Albumin Globulin Ratio 0.6 (0.9-2); Bilirubin,Total 0.4 mg/dl (0.2-1); Ferritin 695.7 ng/ml (8-388); Globulin 3.8 gm/dl (2.5-4.0); Total Protein 6.2 gm/dl (6.4-8.2)
[2021-04-14] MEDS: ALBUTEROL HFA 8 GM INHALER INH SCH ×5 (08:17→22:51)
[2021-04-14] MEDS: ZINC SULFATE 220 MG CAPSULE PO SCH (08:43)
[2021-04-14] MEDS: CHOLECALCIFEROL 400 UNITS 10 MCG TAB PO SCH (08:43)
[2021-04-14] MEDS: PANTOprazole 40 MG TAB PO SCH (08:43)
[2021-04-14] MEDS: OLMESARTAN MEDOXOMIL 20 MG TAB PO SCH (08:43)
[2021-04-14] MEDS: dexAMETHasone 6 MG in SYRINGE 0 ML IV SCH (08:43)
[2021-04-14] MEDS: buPROPion XL 150 MG TABCR PO SCH (08:43)
[2021-04-14] MEDS: PARoxetine HCL 10 MG TAB PO SCH (08:43)
[2021-04-14] MEDS: POLYETHYLENE (MIRALAX) 17 GM PACK PO SCH (08:44)
--- NOTE | 2021-04-14 18:38 | Hospitalist Progress Note ---
Date of Service April 14, 2021 Assessment & Plan (1) COVID-19: (2) Nausea: (3) Sick-euthyroid syndrome: Plan: 80 yo F w/ PMH of Anxiety, HTN, Obesity, OSAS, and COVID-19 presented to ED 04/11 w/ c/o nausea. #. Nausea/loss of appetite At the time of admission, Per patient she hasn't eaten well in last week or so due to nausea. Persisted despite compazine. After her recent diagnosis of COVID on 04/06, DC'd on 04/08. Never required Dexa or Remdesivir. she has been taking hydroxychloroquine per her physician son's recommendation likely secondary to COVID infection vs hydroxychloroquine use She didn't get Hydroxychloroquine while inpatient due to possible interaction with Remdesivir - patient's son updated about this 04/12. Improved and she is eating good. On scheduled miralax, change to prn when appropriate. #. COVID 19 Diagnosed 04/06, on Remdesivir since 04/11 Lymphopenia noted, will monitor CBC daily. Admitting CXR and CTA chest s/o COVID findings, no PE noted. Currently on 3L O2, titrate O2 as needed. If need for O2 rises >6L will consider pulmonology consult c/w Remdesivir 04/12 and Dexa. c/w GI Px for the duration of dexa. will get CMP, PT/INR and Ferritin level on 04/14 #. Sick-Euthyroid syndrome TSH very low at 0.009 and fT4 elevated at 1.96 Will continue to monitor #. DVT Px: Hep SC. Admission and Anticipated Discharge Date Admission Date: April 11, 2021 Subjective Patient was lying down in bed, NAD, on RA/NC O2 [2]L. Patient denies Headache, Dizziness, Fever, Chills, Sore throat, Chest pain, palpitations, SOB, Belly pain, pain/burning while passing urine. Last Bowel movement [today AM x minimal]. No issues overnight. She confesses eating good. Physical Exam Physical Exam: GENERAL: Alert and oriented x3. NAD, on 3L NC O2 HEENT: No pallor, no icterus. Pupils equal, round and reactive to light. Oral mucosa moist. NECK: No JVD, no neck masses. HEART: S1 and S2 heard. Regular rate and rhythm. No murmur, no gallop. RESPIRATORY SYSTEM: Normal AP diameter. No accessory muscle use. No wheezing, no crackles. ABDOMEN: Soft, bowel sounds present, nontender, no distention. CENTRAL NERVOUS SYSTEM: Alert and oriented x3. No facial droop. Speech is clear. Obeys simple commands. Moves extremities. EXTREMITIES: No edema, no erythema seen. Results & Data Results & Data ([facility]) Vital Signs (Past 12 Hours) Vital Signs Temp Pulse Resp BP Pulse Ox 04/14/21 17:19 36.7 C 91 H 91 H 104/58 L 97 04/14/21 15:11 94 H 18 95 04/14/21 11:18 92 H 20 91 04/14/21 08:26 36.7 C 82 22 119/68 96 04/14/21 08:17 94 H 18 90
[2021-04-14] MEDS: REMDESIVIR 100 MG in SODIUM CHLORIDE 0.9% 230 ML IV SCH (20:53)
[2021-04-14] MEDS: SODIUM CHLORIDE 0.9% 10ML FLUSH IV SCH (22:03)
[2021-04-15] MEDS: HEPARIN SOD 5,000 UNIT/0.5 ML VIAL SQ SCH ×3 (05:45→21:00)
[2021-04-15] MEDS: ACETAMINOPHEN 325 MG TAB PO PRN (05:45)
[2021-04-15] MEDS: ALBUTEROL HFA 8 GM INHALER INH SCH ×4 (08:19→20:13)
[2021-04-15] MEDS: OLMESARTAN MEDOXOMIL 20 MG TAB PO SCH (08:58)
[2021-04-15] MEDS: buPROPion XL 150 MG TABCR PO SCH (08:58)
[2021-04-15] MEDS: CHOLECALCIFEROL 400 UNITS 10 MCG TAB PO SCH (08:59)
[2021-04-15] MEDS: ZINC SULFATE 220 MG CAPSULE PO SCH (08:59)
[2021-04-15] MEDS: POLYETHYLENE (MIRALAX) 17 GM PACK PO SCH (08:59)
[2021-04-15] MEDS: PANTOprazole 40 MG TAB PO SCH (08:59)
[2021-04-15] MEDS: PARoxetine HCL 10 MG TAB PO SCH (08:59)
[2021-04-15] MEDS: dexAMETHasone 6 MG in SYRINGE 0 ML IV SCH (10:33)
[2021-04-15 11:26] LABS: Alanine Aminotransferase 47 U/L (12-78); Aspartate Aminotransferase 34 U/L (15-37)
--- NOTE | 2021-04-15 18:42 | Hospitalist Progress Note ---
Date of Service April 15, 2021 Assessment & Plan (1) COVID-19: (2) Nausea: (3) Sick-euthyroid syndrome: Plan: 80 yo F w/ PMH of Anxiety, HTN, Obesity, OSAS, and COVID-19 presented to ED 04/11 w/ c/o nausea. #. Nausea/loss of appetite At the time of admission, Per patient she hasn't eaten well in last week or so due to nausea. Persisted despite compazine. After her recent diagnosis of COVID on 04/06, DC'd on 04/08. Never required Dexa o r Remdesivir. she has been taking hydroxychloroquine per her physician son's recommendation likely secondary to COVID infection vs hydroxychloroquine use She didn't get Hydroxychloroquine while inpatient due to possible interaction with Remdesivir - patient's son updated about this 04/12. Improved and she is eating good. On scheduled miralax, change to prn upon DC. #. COVID 19 Diagnosed 04/06, on Remdesivir since 04/11 Lymphopenia noted, will monitor CBC daily. Admitting CXR and CTA chest s/o COVID findings, no PE noted. Currently on 3L O2, titrate O2 as needed. If need for O2 rises >6L will consider pulmonology consult c/w Remdesivir 04/12 and Dexa. c/w GI Px for the duration of dexa. will get CMP, PT/INR and Ferritin level on 04/16 #. Sick-Euthyroid syndrome TSH very low at 0.009 and fT4 elevated at 1.96 Will continue to monitor #. DVT Px: Hep SC. Admission and Anticipated Discharge Date Admission Date: April 11, 2021 Subjective Patient was lying down in bed, NAD, on NC O2 [2]L. Patient denies Headache, Dizziness, Fever, Chills, Sore throat, Chest pain, palpitations, SOB, Belly pain, pain/burning while passing urine. Last Bowel movement [today AM]. No issues overnight. She confesses eating good. Physical Exam Physical Exam: GENERAL: Alert and oriented x3. NAD, on 3L NC O2 HEENT: No pallor, no icterus. Pupils equal, round and reactive to light. Oral mucosa moist. NECK: No JVD, no neck masses. HEART: S1 and S2 heard. Regular rate and rhythm. No murmur, no gallop. RESPIRATORY SYSTEM: Normal AP diameter. No accessory muscle use. No wheezing, no crackles. ABDOMEN: Soft, bowel sounds present, nontender, no distention. CENTRAL NERVOUS SYSTEM: Alert and oriented x3. No facial droop. Speech is clear. Obeys simple commands. Moves extremities. EXTREMITIES: No edema, no erythema seen. Results & Data Results & Data ([facility]) Vital Signs (Past 12 Hours) Vital Signs Temp Pulse Pulse Pulse Resp BP Pulse Ox 04/15/21 16:12 122 H 04/15/21 15:21 84 96 04/15/21 14:43 36.5 C 91 H 18 136/72 92 04/15/21 11:47 36.7 C 106 H 18 126/76 94 04/15/21 11:32 90 18 92 04/15/21 10:00 87 04/15/21 08:52 36.5 C 114 H 18 126/77 90 04/15/21 08:20 114 H 18 90
[2021-04-15] MEDS: REMDESIVIR 100 MG in SODIUM CHLORIDE 0.9% 230 ML IV SCH (20:59)
[2021-04-15] MEDS: SODIUM CHLORIDE 0.9% 10ML FLUSH IV SCH (21:00)
[2021-04-16] MEDS: ACETAMINOPHEN 325 MG TAB PO PRN ×2 (02:51→11:18)
[2021-04-16] MEDS: HEPARIN SOD 5,000 UNIT/0.5 ML VIAL SQ SCH ×3 (06:16→22:50)
[2021-04-16] MEDS: ALBUTEROL HFA 8 GM INHALER INH SCH ×2 (07:28→11:13)
[2021-04-16] MEDS: dexAMETHasone 6 MG in SYRINGE 0 ML IV SCH (09:01)
[2021-04-16] MEDS: buPROPion XL 150 MG TABCR PO SCH (09:01)
[2021-04-16] MEDS: PANTOprazole 40 MG TAB PO SCH (09:01)
[2021-04-16] MEDS: CHOLECALCIFEROL 400 UNITS 10 MCG TAB PO SCH (09:01)
[2021-04-16] MEDS: POLYETHYLENE (MIRALAX) 17 GM PACK PO SCH (09:01)
[2021-04-16] MEDS: OLMESARTAN MEDOXOMIL 20 MG TAB PO SCH (09:01)
[2021-04-16] MEDS: ZINC SULFATE 220 MG CAPSULE PO SCH (09:01)
[2021-04-16] MEDS: PARoxetine HCL 10 MG TAB PO SCH (09:01)
[2021-04-16 11:02] LABS: Hemoglobin 14.3 g/dL (12.0-16.0); Mean Corpuscular Hemoglobin 30.9 pg (25-34); Mean Corpuscular Volume 90.7 fL (80-100); Mean Platelet Volume 10.5 fL (7.4-10.4); Platelet Count 363 K/uL (130-400); RDW Coefficient of Variation 13.4 % (11.5-14.5); RDW Standard Deviation 44.5 fL (36.4-46.3); Red Blood Count 4.63 M/uL (4.2-5.4); White Blood Count 13.37 K/uL (4.8-10.8)
[2021-04-16] MEDS ORDERED: ALBUTEROL HFA 8 GM INHALER INH PRN (11:10)
[2021-04-16 11:12] LABS: INR 1.1 (0.9-1.1); Prothrombin Time 11.5 Seconds (9.0-12.0)
[2021-04-16 11:26] LABS: Albumin Level 2.5 gm/dl (3.4-5.0); BUN Creatinine Ratio 32.8 (10-20); Calcium 8.8 mg/dl (8.5-10.1); Creatinine Clr Calc Pharmacy 46.8 ml/min; Est GFR (African American) 59.9 ml/min; Est GFR (Non-African American) 51.7 ml/min; Potassium 4.7 mmol/L (3.5-5.1)
[2021-04-16 12:03] LABS: Albumin Globulin Ratio 0.8 (0.9-2); Bilirubin,Total 0.5 mg/dl (0.2-1); Ferritin 2036.8 ng/ml (8-388); Globulin 3.3 gm/dl (2.5-4.0); Total Protein 5.8 gm/dl (6.4-8.2)
--- NOTE | 2021-04-16 16:24 | Hospitalist Progress Note ---
Date of Service April 16, 2021 Assessment & Plan (1) COVID-19: (2) Nausea: (3) Sick-euthyroid syndrome: Plan: 80 yo F w/ PMH of Anxiety, HTN, Obesity, OSAS, and COVID-19 presented to ED 04/11 w/ c/o nausea. #. Nausea/loss of appetite At the time of admission, Per patient she hasn't eaten well in last week or so due to nausea. Persisted despite compazine. After her recent diagnosis of COVID on 04/06, DC'd on 04/08. Never required Dexa o r Remdesivir. she has been taking hydroxychloroquine per her physician son's recommendation likely secondary to COVID infection vs hydroxychloroquine use She didn't get Hydroxychloroquine while inpatient due to possible interaction with Remdesivir - patient's son updated about this 04/12. Improved and she is eating good. On scheduled miralax, change to prn upon DC. #. COVID 19 Diagnosed 04/06, on Remdesivir since 04/11 Lymphopenia noted, will monitor CBC daily. Admitting CXR and CTA chest s/o COVID findings, no PE noted. Currently on 3L O2, titrate O2 as needed. If need for O2 rises >6L will consider pulmonology consult s/p Remdesivir 04/15 and on Dexa. 04/12 c/w GI Px for the duration of dexa. #. Sick-Euthyroid syndrome TSH very low at 0.009 and fT4 elevated at 1.96 Will continue to monitor #. DVT Px: Hep SC. Disposition: Possible DC tomorrow with HH Vs SNF. Admission and Anticipated Discharge Date Admission Date: April 11, 2021 Subjective Patient was lying down in bed, NAD, on RA. Patient denies Headache, Dizziness, Fever, Chills, Sore throat, Chest pain, palpitations, SOB, Belly pain, pain/burning while passing urine. Last Bowel movement [today AM]. No issues overnight. She confesses eating good. She states that she feels tired same as when she came in to the hospital. Physical Exam Physical Exam: GENERAL: Alert and oriented x3. NAD, on RA HEENT: No pallor, no icterus. Pupils equal, round and reactive to light. Oral mucosa moist. NECK: No JVD, no neck masses. HEART: S1 and S2 heard. Regular rate and rhythm. No murmur, no gallop. RESPIRATORY SYSTEM: Normal AP diameter. No accessory muscle use. No wheezing, no crackles. ABDOMEN: Soft, bowel sounds present, nontender, no distention. CENTRAL NERVOUS SYSTEM: Alert and oriented x3. No facial droop. Speech is clear. Obeys simple commands. Moves extremities. EXTREMITIES: No edema, no erythema seen. Results & Data Results & Data ([facility]) Vital Signs (Past 12 Hours) Vital Signs Temp Pulse Pulse Pulse Resp BP BP 04/16/21 15:29 112 H 04/16/21 15:25 36.4 C L 105 H 20 119/78 04/16/21 12:39 36.6 C 100 H 20 129/67 04/16/21 09:26 04/16/21 07:35 101 H 04/16/21 07:30 84 16 04/16/21 07:19 82 04/16/21 06:17 36.8 C 84 18 137/76 Pulse Ox 04/16/21 15:29 04/16/21 15:25 96 04/16/21 12:39 92 04/16/21 09:26 92 04/16/21 07:35 04/16/21 07:30 96 04/16/21 07:19 04/16/21 06:17 96
[2021-04-17] MEDS: HEPARIN SOD 5,000 UNIT/0.5 ML VIAL SQ SCH ×3 (05:28→21:16)
[2021-04-17] MEDS: PROCHLORPERAZINE MALEATE 10 MG TAB PO PRN (08:14)
[2021-04-17] MEDS: CHOLECALCIFEROL 400 UNITS 10 MCG TAB PO SCH (08:14)
[2021-04-17] MEDS: PANTOprazole 40 MG TAB PO SCH (08:15)
[2021-04-17] MEDS: PARoxetine HCL 10 MG TAB PO SCH (08:30)
[2021-04-17] MEDS: POLYETHYLENE (MIRALAX) 17 GM PACK PO SCH (08:30)
[2021-04-17] MEDS: OLMESARTAN MEDOXOMIL 20 MG TAB PO SCH (08:30)
[2021-04-17] MEDS: buPROPion XL 150 MG TABCR PO SCH (08:30)
[2021-04-17] MEDS: ZINC SULFATE 220 MG CAPSULE PO SCH (08:30)
[2021-04-17] MEDS: dexAMETHasone 6 MG in SYRINGE 0 ML IV SCH (08:31)
--- NOTE | 2021-04-17 19:57 | Hospitalist Progress Note ---
Date of Service April 17, 2021 Assessment & Plan (1) COVID-19: (2) Nausea: (3) Sick-euthyroid syndrome: Plan: 80 yo F w/ PMH of Anxiety, HTN, Obesity, OSAS, and COVID-19 presented to ED 04/11 w/ c/o nausea. #. COVID 19 Diagnosed 04/06, on Remdesivir since 04/11 Lymphopenia noted, will monitor CBC daily. Admitting CXR and CTA chest s/o COVID findings, no PE noted. s/p Remdesivir 04/15 and on Dexa. 04/12 c/w GI Px for the duration of dexa. 4 more days of dexamethasone course remaining. Medically stable to discharge. Awaiting placement. #. Nausea/loss of appetite At the time of admission, Per patient she hasn't eaten well in last week or so due to nausea. Persisted despite compazine. After her recent diagnosis of COVID on 04/06, DC'd on 04/08. Never required Dexa or Remdesivir. she has been taking hydroxychloroquine per her physician son's recommendation likely secondary to COVID infection vs hydroxychloroquine use She didn't get Hydroxychloroquine while inpatient due to possible interaction with Remdesivir - patient's son updated about this 04/12. Improved and she is eating good. On scheduled miralax, change to prn upon DC. #. Sick-Euthyroid syndrome TSH very low at 0.009 and fT4 elevated at 1.96 Will continue to monitor #. DVT Px: Hep SC. Disposition: Awaiting rehab placement Admission and Anticipated Discharge Date Admission Date: April 11, 2021 Subjective Patient was sitting up, NAD, on RA. Patient denies Headache, Dizziness, Fever, Chills, Sore throat, Chest pain, palpitations, SOB, Belly pain, pain/burning while passing urine. Last Bowel movement [today AM]. No issues overnight. She confesses eating good. She states that she feels tired same as when she came in to the hospital. Physical Exam Physical Exam: GENERAL: Alert and oriented x3. NAD, on RA HEENT: No pallor, no icterus. Pupils equal, round and reactive to light. Oral mucosa moist. NECK: No JVD, no neck masses. HEART: S1 and S2 heard. Regular rate and rhythm. No murmur, no gallop. RESPIRATORY SYSTEM: Normal AP diameter. No accessory muscle use. No wheezing, no crackles. ABDOMEN: Soft, bowel sounds present, nontender, no distention. CENTRAL NERVOUS SYSTEM: Alert and oriented x3. No facial droop. Speech is clear. Obeys simple commands. Moves extremities. EXTREMITIES: No edema, no erythema seen. Results & Data Results & Data ([facility]) Vital Signs (Past 12 Hours) Vital Signs Temp Pulse Pulse Pulse Pulse Resp BP 04/17/21 19:28 36.5 C 85 20 132/85 04/17/21 15:35 36.8 C 118 H 18 04/17/21 15:10 103 H 04/17/21 12:13 36.1 C L 122 H 122 H 20 133/78 04/17/21 08:25 37.0 C 122 H 20 142/85 H BP Pulse Ox 04/17/21 19:28 90 04/17/21 15:35 128/76 90 04/17/21 15:10 04/17/21 12:13 90 04/17/21 08:25 90
[2021-04-18] MEDS: HEPARIN SOD 5,000 UNIT/0.5 ML VIAL SQ SCH ×2 (05:59→14:37)
[2021-04-18 06:47] LABS: Appearance Urine Clear (Clear); Bilirubin Urine Negative (Negative); Blood Urine Negative (Negative); Color Urine Yellow; Glucose Urine UA Negative (Negative); Ketones Urine Negative (Negative); Leukocyte Esterase Urine Negative (Negative); Nitrite Urine Negative (Negative); Protein Urine Negative (Negative); Specific Gravity Urine 1.024 (1.000-1.030); Urobilinogen Urine Negative (Negative); pH Urine 5.5 (4.5-7.5)
[2021-04-18] MEDS: ONDANSETRON INJ 2 MG/ML 2 ML VIAL IV PRN (08:06)
[2021-04-18] MEDS: PROCHLORPERAZINE MALEATE 10 MG TAB PO PRN (08:06)
[2021-04-18] MEDS: POLYETHYLENE (MIRALAX) 17 GM PACK PO SCH (08:07)
[2021-04-18] MEDS: ZINC SULFATE 220 MG CAPSULE PO SCH (08:08)
[2021-04-18] MEDS: PANTOprazole 40 MG TAB PO SCH (08:08)
[2021-04-18] MEDS: buPROPion XL 150 MG TABCR PO SCH (08:08)
[2021-04-18] MEDS: OLMESARTAN MEDOXOMIL 20 MG TAB PO SCH (08:09)
[2021-04-18] MEDS: PARoxetine HCL 10 MG TAB PO SCH (08:09)
[2021-04-18] MEDS: CHOLECALCIFEROL 400 UNITS 10 MCG TAB PO SCH (08:10)
[2021-04-18] MEDS ORDERED: dexAMETHasone 1 MG TAB PO SCH (09:00)
--- NOTE | 2021-04-18 14:35 | Hospitalist Progress Note ---
Date of Service April 18, 2021 Assessment & Plan (1) Pneumonia due to COVID-19 virus: Plan: s/p 5 days of remdesivir and on daily dexamethasone. She is not hypoxic any longer, and she is irritated. Will stop steroids at this time. Cont daily zinc. No indication for hydroxychloroquine. (2) Tachycardia: Plan: bouts of sinus tachycardia up into the 150s on telemetry-reviewed with tele monitor. Episodes are brief and limited. She is very agitated, denies chest pain or SOB and denies feeling dehydrated. Stopped steroids. Stop telemetry at this point. (3) HTN (hypertension): Plan: at goal, cont current medications. (4) Depression: Plan: cont Welbutrin and paroxetine per home regimen. Stop steroids to help with irritability. (5) Obesity: (6) DVT prophylaxis: Plan: Heparin changed to Lovenox to reduce shot burden Full code Dispo-to [facility] pending auth, placed today. She is medically stable for discharge when bed available. Alix Blandon DO [facility] Hospitalist Admission and Anticipated Discharge Date Admission Date: April 11, 2021 Subjective 80 yo F with COVID-19 pneumonia s/p 5 days remdesivir she is very agitated today and puts her hands over her face saying that "everything will be better when I can get out of this room" no specific symptoms tolerating PO, afebrile breathing on room air. Review of Systems Review of Systems: All systems were reviewed and negative except as indicated in HPI above. Physical Exam Physical Exam: CONSTITUTIONAL: obese, vitals as above, generally well- appearing EYES: normal conjunctivae, no scleral icterus ENT: external ear and nose normal, MMM RESPIRATORY: clear to auscultation bilaterally, no crackles, rales or wheezes, normal respiratory effort CARDIOVASCULAR: regular rate and rhythm, S1 and 2 heard without murmurs, gallops or rubs, no JVD, no peripheral edema GASTROINTESTINAL: soft, nontender, nondistended, no guarding. MUSCULOSKELETAL: strength 5/5 throughout, head is normocephalic and atraumatic SKIN: warm and dry NEUROLOGIC: CN 2-12 grossly intact, normal cognition, normal speech, no tremor, no gross focal deficits. PSYCHIATRIC: alert cooperative and oriented to person, place and time. Irritated Results & Data Results & Data ([facility]) Vital Signs (Past 12 Hours) Vital Signs Temp Pulse Pulse Pulse Resp BP BP 04/18/21 12:19 36.7 C 92 H 18 119/82 04/18/21 10:02 104 H 04/18/21 08:14 36.7 C 119 H 18 138/84 04/18/21 04:44 36.4 C L 65 16 129/83 Pulse Ox 04/18/21 12:19 91 04/18/21 10:02 04/18/21 08:14 89 L 04/18/21 04:44 90 Laboratory Results Urine 04/18/21 Range/Units 06:06 Urine Color Yellow Urine Appearance Clear (Clear) Urine pH 5.5 (4.5-7.5) Ur Specific Gary 1.024 (1.000-1.030) Urine Protein Negative (Negative) Urine Glucose (UA) Negative (Negative) Medications Administered Current Inpatient Medications Acetaminophen (Acetaminophen 325 Mg Tab) 650 mg PO Q4H PRN PRN Reason: pain/fever Stop: 05/11/21 23:47 Last Admin: 04/16/21 11:18 Dose: 650 mg Documented by: Al Hydrox/Mg Hydrox/Simethicone (Aluminum/Magnesium Susp 30 Ml Udc) 30 ml PO Q6H PRN PRN Reason: Dyspepsia Stop: 05/11/21 23:47 Albuterol (Albuterol Hfa 8 Gm Inhaler) 2 puffs INH Q4RWA PRN PRN Reason: Shortness Of Breath Or Wheezing Stop: 05/12/21 00:14 Bupropion HCl (Bupropion Xl 150 Mg Tabcr) 150 mg PO DAILY [facility] Stop: 05/12/21 08:59 Last Admin: 04/18/21 08:08 Dose: 150 mg Documented by: Heparin Sodium (Porcine) (Heparin Sod 5,000 Unit/0.5 Ml Vial) 7,500 units SQ Q8 [facility] Stop: 05/11/21 23:47 Last Admin: 04/18/21 05:59 Dose: 7,500 units Documented by: Miscellaneous (Order Awaiting Action) 1 ea N/A BID [facility] Stop: 05/17/21 20:59 Last Admin: 04/18/21 08:10 Dose: 1 ea Documented by: Olmesartan (Olmesartan Medoxomil 20 Mg Tab) 20 mg PO DAILY [facility] Stop: 05/12/21 08:59 Last Admin: 04/18/21 08:09 Dose: 20 mg Documented by: Ondansetron HCl (Ondansetron Inj 2 Mg/Ml 2 Ml Vial) 4 mg IV Q6H PRN PRN Reason: Nausea Stop: 05/11/21 23:47 Last Admin: 04/18/21 08:06 Dose: 4 mg Documented by: Pantoprazole Sodium (Pantoprazole 40 Mg Tab) 40 mg PO QAM [facility] Stop: 04/21/21 09:01 Last Admin: 04/18/21 08:08 Dose: 40 mg Documented by: Paroxetine HCl (Paroxetine Hcl 10 Mg Tab) 10 mg PO DAILY [facility] Stop: 05/12/21 08:59 Last Admin: 04/18/21 08:09 Dose: 10 mg Documented by: Polyethylene Glycol (Polyethylene (Miralax) 17 Gm Pack) 17 gm PO DAILY [facility] Stop: 05/14/21 08:59 Last Admin: 04/18/21 08:07 Dose: 17 gm Documented by: Prochlorperazine (Prochlorperazine Maleate 10 Mg Tab) 10 mg PO Q6H PRN PRN Reason: nausea Stop: 05/11/21 23:47 Last Admin: 04/18/21 08:06 Dose: 10 mg Documented by: Vitamin D (Cholecalciferol 400 Units 10 Mcg Tab) 200 units PO QAM [facility] Stop: 05/11/21 23:47 Last Admin: 04/18/21 08:10 Dose: 200 units Documented by: Zinc Sulfate (Zinc Sulfate 220 Mg Capsule) [facility] Stop: 05/12/21 08:59 Last Admin: 04/18/21 08:08 Dose: 220 mg Documented by:
[2021-04-18] MEDS: ENOXAPARIN INJ 40 MG/0.4 ML SYR SQ SCH (20:05)
[2021-04-19] MEDS: PANTOprazole 40 MG TAB PO SCH (08:10)
[2021-04-19] MEDS: POLYETHYLENE (MIRALAX) 17 GM PACK PO SCH (08:10)
[2021-04-19] MEDS: CHOLECALCIFEROL 400 UNITS 10 MCG TAB PO SCH (08:10)
[2021-04-19] MEDS: PARoxetine HCL 10 MG TAB PO SCH (08:10)
[2021-04-19] MEDS: buPROPion XL 150 MG TABCR PO SCH (08:10)
[2021-04-19] MEDS: OLMESARTAN MEDOXOMIL 20 MG TAB PO SCH (08:10)
[2021-04-19] MEDS: ZINC SULFATE 220 MG CAPSULE PO SCH (08:10)
[2021-04-19 08:23] LABS: Hematocrit (blood only) 39.3 % (37-47); Hemoglobin 12.9 g/dL (12.0-16.0); Mean Corpuscular Hemoglobin 30.3 pg (25-34); Mean Corpuscular Hgb Conc 32.8 g/dL (32-36); Mean Corpuscular Volume 92.3 fL (80-100); Mean Platelet Volume 10.4 fL (7.4-10.4); Nucleated RBC # (auto) 0.02 K/uL (0-0); Nucleated RBC % (auto) 0.1 %; Platelet Count 291 K/uL (130-400); RDW Coefficient of Variation 13.8 % (11.5-14.5); RDW Standard Deviation 46.3 fL (36.4-46.3); Red Blood Count 4.26 M/uL (4.2-5.4); White Blood Count 16.72 K/uL (4.8-10.8)
[2021-04-19 09:00] LABS: BUN Creatinine Ratio 39.6 (10-20); Blood Urea Nitrogen 39 mg/dl (7-18); C Reactive Protein < 0.29 mg/dl (0-0.29); Calcium 8.5 mg/dl (8.5-10.1); Carbon Dioxide 29 mmol/L (21-32); Chloride 109 mmol/L (98-107); Est GFR (African American) 62.8 ml/min; Est GFR (Non-African American) 54.2 ml/min; Glucose 116 mg/dl (70-99); Magnesium 2.5 mg/dl (1.8-2.4); Phosphorus 4.3 mg/dl (2.5-4.9); Potassium 4.8 mmol/L (3.5-5.1); Sodium 142 mmol/L (136-145)
[2021-04-19] MEDS: ONDANSETRON INJ 2 MG/ML 2 ML VIAL IV PRN (09:57)
--- NOTE | 2021-04-19 16:16 | Hospitalist Progress Note ---
Date of Service April 19, 2021 Assessment & Plan (1) Pneumonia due to COVID-19 virus: Plan: s/p 5 days of remdesivir and s/p dexamethasone stopped 04/18. Some residual hypoxia present as a lingering effect from the known pneumonia. Son demands a chest xray, which revealed improving opacities as expected. Cont daily zinc. No indication for hydroxychloroquine which has been disproved as a reasonable treatment or prevention method for covid-19 and may be harmful. (2) Tachycardia: Plan: bouts of sinus tachycardia up into the 150s on telemetry-reviewed with tele monitor. Episodes are brief and limited. She is very agitated, denies chest pain or SOB and denies feeling dehydrated. Stopped steroids. Stop telemetry at this point. (3) HTN (hypertension): Plan: at goal, cont current medications. (4) Depression: Plan: cont Welbutrin and paroxetine per home regimen. (5) Obesity: (6) DVT prophylaxis: Plan: Lovenox Full code Dispo-She is medically stable for discharge when bed available. SNF auth placed as above. DO Juarez Hernandez Hospitalist Admission and Anticipated Discharge Date Admission Date: April 11, 2021 Subjective 80 yo F with COVID-19 pneumonia s/p 5 days remdesivir she is still upset that she is in the hospital for a moment was crying saying that she doesn't know how she can make it another night discussed possibilty of a sleep aid and she is considering. 88% on room air overnight-continuous oxygen replaced and wean as tolerated. Called peer to peer denial for [facility]-not overturned spoke with son and he is upset and wants mom in rehab-wants to appeal--demands to see PT notes and speak wtih a therapist. Patient is tearful when she learns of this and again expresses her desire to leave. She is open to an auth for SNF and this was discussed with the Radiation Engineer by phone while I was in the patient room. Review of Systems Review of Systems: All systems were reviewed and negative except as indicated in HPI above. Physical Exam Physical Exam: CONSTITUTIONAL: obese, vitals as above, generally well- appearing EYES: normal conjunctivae, no scleral icterus ENT: external ear and nose normal, MMM RESPIRATORY: clear to auscultation bilaterally, no crackles, rales or wheezes, normal respiratory effort CARDIOVASCULAR: regular rate and rhythm, S1 and 2 heard without murmurs, gallops or rubs, no JVD, no peripheral edema GASTROINTESTINAL: soft, nontender, nondistended, no guarding. MUSCULOSKELETAL: strength 5/5 throughout, head is normocephalic and atraumatic SKIN: warm and dry NEUROLOGIC: CN 2-12 grossly intact, normal cognition, normal speech, no tremor, no gross focal deficits. PSYCHIATRIC: alert cooperative and oriented to person, place and time. Results & Data Results & Data ([facility]) Vital Signs (Past 12 Hours) Vital Signs Pulse Ox 04/19/21 08:44 90 Laboratory Results Short CBC 04/19/21 Range/Units 07:38 WBC 16.72 H (4.8-10.8) K/uL Hgb 12.9 (12.0-16.0) g/dL Hct 39.3 (37-47) % Plt Count 291 (130-400) K/uL BMP 04/19/21 07:38 Sodium 142 Potassium 4.8 Chloride 109 H Carbon Dioxide 29 BUN 39 H Creatinine 0.99 Glucose 116 H Calcium 8.5 Medications Administered Current Inpatient Medications Acetaminophen (Acetaminophen 325 Mg Tab) 650 mg PO Q4H PRN PRN Reason: pain/fever Stop: 05/11/21 23:47 Last Admin: 04/16/21 11:18 Dose: 650 mg Documented by: Al Hydrox/Mg Hydrox/Simethicone (Aluminum/Magnesium Susp 30 Ml Udc) 30 ml PO Q6H PRN PRN Reason: Dyspepsia Stop: 05/11/21 23:47 Albuterol (Albuterol Hfa 8 Gm Inhaler) 2 puffs INH Q4RWA PRN PRN Reason: Shortness Of Breath Or Wheezing Stop: 05/12/21 00:14 Bupropion HCl (Bupropion Xl 150 Mg Tabcr) 150 mg PO DAILY [facility] Stop: 05/12/21 08:59 Last Admin: 04/19/21 08:10 Dose: 150 mg Documented by: Enoxaparin Sodium (Enoxaparin Inj 40 Mg/0.4 Ml Syr) 40 mg SQ HS [facility] Stop: 05/18/21 20:59 Last Admin: 04/18/21 20:05 Dose: 40 mg Documented by: Miscellaneous (Durezol ~ Order Awaiting Action) 1 ea N/A BID [facility] Stop: 05/17/21 20:59 Last Admin: 04/19/21 08:09 Dose: 1 ea Documented by: Olmesartan (Olmesartan Medoxomil 20 Mg Tab) 20 mg PO DAILY [facility] Stop: 05/12/21 08:59 Last Admin: 04/19/21 08:10 Dose: 20 mg Documented by: Ondansetron HCl (Ondansetron Inj 2 Mg/Ml 2 Ml Vial) 4 mg IV Q6H PRN PRN Reason: Nausea Stop: 05/11/21 23:47 Last Admin: 04/19/21 09:57 Dose: 4 mg Documented by: Pantoprazole Sodium (Pantoprazole 40 Mg Tab) 40 mg PO QAM [facility] Stop: 04/21/21 09:01 Last Admin: 04/19/21 08:10 Dose: 40 mg Documented by: Paroxetine HCl (Paroxetine Hcl 10 Mg Tab) 10 mg PO DAILY [facility] Stop: 05/12/21 08:59 Last Admin: 04/19/21 08:10 Dose: 10 mg Documented by: Polyethylene Glycol (Polyethylene (Miralax) 17 Gm Pack) 17 gm PO DAILY [facility] Stop: 05/14/21 08:59 Last Admin: 04/19/21 08:10 Dose: 17 gm Documented by: Prochlorperazine (Prochlorperazine Maleate 10 Mg Tab) 10 mg PO Q6H PRN PRN Reason: nausea Stop: 05/11/21 23:47 Last Admin: 04/18/21 08:06 Dose: 10 mg Documented by: Vitamin D (Cholecalciferol 400 Units 10 Mcg Tab) 200 units PO QAM [facility] Stop: 05/11/21 23:47 Last Admin: 04/19/21 08:10 Dose: 200 units Documented by: Zinc Sulfate (Zinc Sulfate 220 Mg Capsule) 220 mg PO QAM [facility] Stop: 05/12/21 08:59 Last Admin: 04/19/21 08:10 Dose: 220 mg Documented by:
--- NOTE | 2021-04-19 21:32 | XRay Report ---
XR chest 1V portable CLINICAL HISTORY: covid pneumonia, hypoxia COMPARISON STUDY: April 11, 2021 FINDINGS: No pneumothorax. No pleural effusion. Patchy areas of mixed reticular and airspace opacities are again seen throughout bilateral lungs, pre dominantly within lateral and lower lung distribution, slightly improving since prior study. Cardiomediastinal silhouette is within upper limits of normal. No significant pulmonary vascular congestion.. Aorta is tortuous and calcified. Osseous structures: Mild degenerative changes of the spine and bilateral shoulders. IMPRESSION: 1. Interval improvement of opacities as detailed above. ACT 112: Negative or not required by law. The above report was generated using voice recognition software. It may contain grammatical, syntax o r spelling errors. Electronically signed by: Maria Fernanda Sanchez DO 04/19/2021 9:30 PM
[2021-04-19] MEDS: ZOLPIDEM TARTRATE 5 MG TAB PO PRN (21:33)
[2021-04-19] MEDS: ENOXAPARIN INJ 40 MG/0.4 ML SYR SQ SCH (21:35)
[2021-04-20] MEDS: CHOLECALCIFEROL 400 UNITS 10 MCG TAB PO SCH (08:16)
[2021-04-20] MEDS: PANTOprazole 40 MG TAB PO SCH (08:17)
[2021-04-20] MEDS: buPROPion XL 150 MG TABCR PO SCH (08:17)
[2021-04-20] MEDS: PARoxetine HCL 10 MG TAB PO SCH (08:17)
[2021-04-20] MEDS: ZINC SULFATE 220 MG CAPSULE PO SCH (08:18)
[2021-04-20] MEDS: POLYETHYLENE (MIRALAX) 17 GM PACK PO SCH (08:18)
[2021-04-20] MEDS: OLMESARTAN MEDOXOMIL 20 MG TAB PO SCH (08:19)
[2021-04-20] MEDS: ONDANSETRON INJ 2 MG/ML 2 ML VIAL IV PRN (13:18)
--- NOTE | 2021-04-20 20:11 | Hospitalist Progress Note ---
Date of Service April 20, 2021 Assessment & Plan (1) Pneumonia due to COVID-19 virus: Plan: s/p 5 days of remdesivir and s/p dexamethasone stopped 04/18. Some residual hypoxia present as a lingering effect from the known pneumonia. Expected to clear-CXR reveals resolving pneumonia. Cont daily zinc. No indication for hydroxychloroquine which has been disproved as a reasonable treatment or prevention method for covid-19 and may be harmful. CRP unremarkable which is a good sign. Per infectious security specialist... must remain on precautions while still on oxygen and symptomatic. (2) Tachycardia: Plan: this has resolved off steroids and with less agitation (3) HTN (hypertension): Plan: at goal, cont current medications. (4) Vomiting: Plan: reported by patient but not documented or reported by nursing staff. She is now improve. ?etiology. Self-limited? (5) Depression: Plan: cont Welbutrin and paroxetine per home regimen. (6) Obesity: Plan: Lifestyle modifications recommended. (7) DVT prophylaxis: Plan: Lovenox Full code Dispo-She is medically stable for discharge when bed available. SNF auth placed -awaiting [facility] for transfer. Alix Blandon DO [facility] Hospitalist Admission and Anticipated Discharge Date Admission Date: April 11, 2021 Subjective 80 yo F with COVID-19 pneumonia doing somewhat better today states she has been sleeping all day and feels more rested although she had some vomiting overnight uncertain what triggered the vomiting but she feels improved now and is tolerating PO afebrile no abdominal symptoms or tenderness. Soft ,formed stool this am. still on oxygen but denies SOB CXR results reviewed with patient revealed resolving pneumonia. Review of Systems Review of Systems: All systems were reviewed and negative except as indicated in HPI above. Physical Exam Physical Exam: CONSTITUTIONAL: obese, vitals as above, generally well- appearing EYES: normal conjunctivae, no scleral icterus ENT: external ear and nose normal, MMM RESPIRATORY: some intermittent coarse crackles at bases of lungs bilaterally, no rales or wheezes, normal respiratory effort CARDIOVASCULAR: regular rate and rhythm, S1 and 2 heard without murmurs, gallops or rubs, no JVD, no peripheral edema GASTROINTESTINAL: soft, nontender, nondistended, no guarding. MUSCULOSKELETAL: strength 5/5 throughout, head is normocephalic and atraumatic SKIN: warm and dry NEUROLOGIC: CN 2-12 grossly intact, normal cognition, normal speech, no tremor, no gross focal deficits. PSYCHIATRIC: alert cooperative and oriented to person, place and time. Results & Data Results & Data ([facility]) Vital Signs (Past 12 Hours) Vital Signs Temp Pulse Resp BP Pulse Ox 04/20/21 15:47 36.6 C 63 16 103/74 94 04/20/21 13:31 93 Medications Administered Current Inpatient Medications Acetaminophen (Acetaminophen 325 Mg Tab) 650 mg PO Q4H PRN PRN Reason: pain/fever Stop: 05/11/21 23:47 Last Admin: 04/16/21 11:18 Dose: 650 mg Documented by: Al Hydrox/Mg Hydrox/Simethicone (Aluminum/Magnesium Susp 30 Ml Udc) 30 ml PO Q6H PRN PRN Reason: Dyspepsia Stop: 05/11/21 23:47 Albuterol (Albuterol Hfa 8 Gm Inhaler) 2 puffs INH Q4RWA PRN PRN Reason: Shortness Of Breath Or Wheezing Stop: 05/12/21 00:14 Bupropion HCl (Bupropion Xl 150 Mg Tabcr) 150 mg PO DAILY [facility] Stop: 05/12/21 08:59 Last Admin: 04/20/21 08:17 Dose: 150 mg Documented by: Enoxaparin Sodium (Enoxaparin Inj 40 Mg/0.4 Ml Syr) 40 mg SQ HS [facility] Stop: 05/18/21 20:59 Last Admin: 04/19/21 21:35 Dose: 40 mg Documented by: Miscellaneous (Durezol ~ Order Awaiting Action) 1 ea N/A BID [facility] Stop: 05/17/21 20:59 Last Admin: 04/20/21 08:19 Dose: 1 ea Documented by: Olmesartan (Olmesartan Medoxomil 20 Mg Tab) 20 mg PO DAILY [facility] Stop: 05/12/21 08:59 Last Admin: 04/20/21 08:19 Dose: 20 mg Documented by: Ondansetron HCl (Ondansetron Inj 2 Mg/Ml 2 Ml Vial) 4 mg IV Q6H PRN PRN Reason: Nausea Stop: 05/11/21 23:47 Last Admin: 04/20/21 13:18 Dose: 4 mg Documented by: Pantoprazole Sodium (Pantoprazole 40 Mg Tab) 40 mg PO QAM [facility] Stop: 04/21/21 09:01 Last Admin: 04/20/21 08:17 Dose: 40 mg Documented by: Paroxetine HCl (Paroxetine Hcl 10 Mg Tab) 10 mg PO DAILY [facility] Stop: 05/12/21 08:59 Last Admin: 04/20/21 08:17 Dose: 10 mg Documented by: Polyethylene Glycol (Polyethylene (Miralax) 17 Gm Pack) 17 gm PO DAILY [facility] Stop: 05/14/21 08:59 Last Admin: 04/20/21 08:18 Dose: 17 gm Documented by: Prochlorperazine (Prochlorperazine Maleate 10 Mg Tab) 10 mg PO Q6H PRN PRN Reason: nausea Stop: 05/11/21 23:47 Last Admin: 04/18/21 08:06 Dose: 10 mg Documented by: Vitamin D (Cholecalciferol 400 Units 10 Mcg Tab) 200 units PO QAM [facility] Stop: 05/11/21 23:47 Last Admin: 04/20/21 08:16 Dose: 200 units Documented by: Zinc Sulfate (Zinc Sulfate 220 Mg Capsule) 220 mg PO QAM [facility] Stop: 05/12/21 08:59 Last Admin: 04/20/21 08:18 Dose: 220 mg Documented by: Zolpidem Tartrate (Zolpidem Tartrate 5 Mg Tab) 5 mg PO HS PRN PRN Reason: Sleep Stop: 05/19/21 21:07 Last Admin: 04/19/21 21:33 Dose: 5 mg Documented by:
[2021-04-20] MEDS: ENOXAPARIN INJ 40 MG/0.4 ML SYR SQ SCH (21:07)
[2021-04-20] MEDS: ZOLPIDEM TARTRATE 5 MG TAB PO PRN (21:15)
[2021-04-21] MEDS: ZINC SULFATE 220 MG CAPSULE PO SCH (10:17)
[2021-04-21] MEDS: buPROPion XL 150 MG TABCR PO SCH (10:18)
[2021-04-21] MEDS: PANTOprazole 40 MG TAB PO SCH (10:18)
[2021-04-21] MEDS: PARoxetine HCL 10 MG TAB PO SCH (10:18)
[2021-04-21] MEDS: CHOLECALCIFEROL 400 UNITS 10 MCG TAB PO SCH (10:19)
[2021-04-21] MEDS: POLYETHYLENE (MIRALAX) 17 GM PACK PO SCH (10:20)
[2021-04-21] MEDS: OLMESARTAN MEDOXOMIL 20 MG TAB PO SCH (10:20)
[2021-04-21 13:27] LABS: Hematocrit (blood only) 42.6 % (37-47); Hemoglobin 13.6 g/dL (12.0-16.0); Mean Corpuscular Hemoglobin 29.8 pg (25-34); Mean Corpuscular Hgb Conc 31.9 g/dL (32-36); Mean Corpuscular Volume 93.2 fL (80-100); Mean Platelet Volume 11.1 fL (7.4-10.4); Platelet Count 204 K/uL (130-400); RDW Coefficient of Variation 13.8 % (11.5-14.5); RDW Standard Deviation 47.2 fL (36.4-46.3); Red Blood Count 4.57 M/uL (4.2-5.4); White Blood Count 14.07 K/uL (4.8-10.8)
[2021-04-21 13:39] LABS: BUN Creatinine Ratio 34.8 (10-20); Calcium 8.8 mg/dl (8.5-10.1); Creatinine Clr Calc Pharmacy 41.9 ml/min; Est GFR (African American) 52.4 ml/min; Est GFR (Non-African American) 45.2 ml/min; Magnesium 2.4 mg/dl (1.8-2.4); Potassium 4.5 mmol/L (3.5-5.1)
[2021-04-21 13:52] LABS: Phosphorus 3.4 mg/dl (2.5-4.9)
[2021-04-21] MEDS: ONDANSETRON INJ 2 MG/ML 2 ML VIAL IV PRN ×2 (13:52→21:40)
--- NOTE | 2021-04-21 17:00 | Hospitalist Progress Note ---
Date of Service April 21, 2021 Assessment & Plan (1) Pneumonia due to COVID-19 virus: Plan: Initial diagnosis of Covid before April 06, 2021, about 16 days ago as per the son Was in [facility] from 03/16 to 04/08 and did not receive any treatment due to lack of symptoms Received hydroxychloroquine and zinc prescribed by her son Admitted here on April 11, 2021 with increasing symptoms, cough, shortness of breath and desaturation s/p 5 days of remdesivir and s/p dexamethasone stopped 04/18. Repeat x-ray did show improvement of pneumonia She has been feeling much better and as of now saturating well with room air Discussed in detail with the infection control and was advised that she can come off isolation tomorrow morning provided she does not have any more recurrence of desaturation and/or symptoms overnight Discussed with the son who is a physician in detail History of prolonged smoking and COPD Chronic cough the current nature of cough is no different from her prior history of cough She does not have any exacerbation of COPD (2) Tachycardia: Plan: This has resolved off steroids and with less agitation (3) HTN (hypertension): Plan: at goal, cont current medications. (4) Vomiting: Plan: Reported by patient but not documented or reported by nursing staff. She is now improve. Has had an another episode of vomiting this morning-controlled with Zofran (5) Depression: Plan: Cont Welbutrin and paroxetine per home regimen. (6) Obesity: Plan: Lifestyle modifications recommended. (7) DVT prophylaxis: Plan: Lovenox Full code Dispo-She is medically stable for discharge when bed available. SNF auth placed -awaiting auth for transfer. She wants to go to rehab She will have PT and OT evaluation prior to discharge Admission and Anticipated Discharge Date Admission Date: April 11, 2021 Subjective April 21, 2021 The patient was seen and examined in medical telemetry unit and in the Covid room She has been feeling much better and denies any shortness of breath or cough She remains generally weak but has been able to get out of bed and going to the bathroom without any shortness of breath Her saturation remains stable with room air right now Review of Systems Review of Systems: All systems reviewed and are unremarkable except as noted below Respiratory: No shortness of breath at rest Physical Exam Physical Exam: Lying in bed comfortably Constitutional: well developed, well nourished and + obese; not ill appearing Eyes: PERRL, conjunctivae normal, anicteric sclerae ENMT: external ear and nose normal, oropharynx normal Neck: trachea midline, no thyromegaly Respiratory: no respiratory distress and no cough Auscultation: + diminished lung sounds; no crackles and no wheezes Cardiovascular: Rate/Rhythm: regular rate and regular rhythm; not tachycardic Heart Sounds: normal S1 and normal S2; no murmur Extremities: no edema Gastrointestinal (Abdomen): normal bowel sounds, soft, nontender, no hepatosplenomegaly Musculoskeletal: No acute arthritis in any joint Neurologic: Alert, awake and oriented x3. Generally weak but no focal sensory and motor deficit appreciated Results & Data Results & Data ([facility]) Vital Signs (Past 12 Hours) Vital Signs Temp Pulse Resp BP Pulse Ox 04/21/21 15:32 36.5 C 94 H 20 119/71 92 04/21/21 07:20 36.4 C L 78 18 134/79 94 Laboratory Results Short CBC 04/21/21 Range/Units 12:48 WBC 14.07 H (4.8-10.8) K/uL Hgb 13.6 (12.0-16.0) g/dL Hct 42.6 (37-47) % Plt Count 204 (130-400) K/uL BMP 04/21/21 12:48 Sodium 140 Potassium 4.5 Chloride 106 Carbon Dioxide 27 BUN 40 H Creatinine 1.15 Glucose 127 H Calcium 8.8 Medications Administered Current Inpatient Medications Acetaminophen (Acetaminophen 325 Mg Tab) 650 mg PO Q4H PRN PRN Reason: pain/fever Stop: 05/11/21 23:47 Last Admin: 04/16/21 11:18 Dose: 650 mg Documented by: Al Hydrox/Mg Hydrox/Simethicone (Aluminum/Magnesium Susp 30 Ml Udc) 30 ml PO Q6H PRN PRN Reason: Dyspepsia Stop: 05/11/21 23:47 Albuterol (Albuterol Hfa 8 Gm Inhaler) 2 puffs INH Q4RWA PRN PRN Reason: Shortness Of Breath Or Wheezing Stop: 05/12/21 00:14 Bupropion HCl (Bupropion Xl 150 Mg Tabcr) 150 mg PO DAILY [facility] Stop: 05/12/21 08:59 Last Admin: 04/21/21 10:18 Dose: 150 mg Documented by: Enoxaparin Sodium (Enoxaparin Inj 40 Mg/0.4 Ml Syr) 40 mg SQ HS [facility] Stop: 05/18/21 20:59 Last Admin: 04/20/21 21:07 Dose: 40 mg Documented by: Miscellaneous (Durezol ~ Order Awaiting Action) 1 ea N/A BID [facility] Stop: 05/17/21 20:59 Last Admin: 04/21/21 10:20 Dose: 1 ea Documented by: Olmesartan (Olmesartan Medoxomil 20 Mg Tab) 20 mg PO DAILY [facility] Stop: 05/12/21 08:59 Last Admin: 04/21/21 10:20 Dose: 20 mg Documented by: Ondansetron HCl (Ondansetron Inj 2 Mg/Ml 2 Ml Vial) 4 mg IV Q6H PRN PRN Reason: Nausea Stop: 05/11/21 23:47 Last Admin: 04/21/21 13:52 Dose: 4 mg Documented by: Paroxetine HCl (Paroxetine Hcl 10 Mg Tab) 10 mg PO DAILY [facility] Stop: 05/12/21 08:59 Last Admin: 04/21/21 10:18 Dose: 10 mg Documented by: Polyethylene Glycol (Polyethylene (Miralax) 17 Gm Pack) 17 gm PO DAILY [facility] Stop: 05/14/21 08:59 Last Admin: 04/21/21 10:20 Dose: Not Given Documented by: Prochlorperazine (Prochlorperazine Maleate 10 Mg Tab) 10 mg PO Q6H PRN PRN Reason: nausea Stop: 05/11/21 23:47 Last Admin: 04/18/21 08:06 Dose: 10 mg Documented by: Vitamin D (Cholecalciferol 400 Units 10 Mcg Tab) 200 units PO QAM [facility] Stop: 05/11/21 23:47 Last Admin: 04/21/21 10:19 Dose: 200 units Documented by: Zinc Sulfate (Zinc Sulfate 220 Mg Capsule) 220 mg PO QAM [facility] Stop: 05/12/21 08:59 Last Admin: 04/21/21 10:17 Dose: 220 mg Documented by: Zolpidem Tartrate (Zolpidem Tartrate 5 Mg Tab) 5 mg PO HS PRN PRN Reason: Sleep Stop: 05/19/21 21:07 Last Admin: 04/20/21 21:15 Dose: 5 mg Documented by:
[2021-04-21] MEDS: ENOXAPARIN INJ 40 MG/0.4 ML SYR SQ SCH (21:31)
[2021-04-21] MEDS: ZOLPIDEM TARTRATE 5 MG TAB PO PRN (21:31)
[2021-04-22] MEDS: CHOLECALCIFEROL 400 UNITS 10 MCG TAB PO SCH (09:45)
[2021-04-22] MEDS: POLYETHYLENE (MIRALAX) 17 GM PACK PO SCH (09:46)
[2021-04-22] MEDS: PARoxetine HCL 10 MG TAB PO SCH (09:49)
[2021-04-22] MEDS: buPROPion XL 150 MG TABCR PO SCH (09:49)
[2021-04-22] MEDS: ZINC SULFATE 220 MG CAPSULE PO SCH (09:49)
[2021-04-22] MEDS: OLMESARTAN MEDOXOMIL 20 MG TAB PO SCH (09:50)
--- NOTE | 2021-04-22 12:23 | Hospitalist Progress Note ---
Date of Service April 22, 2021 Assessment & Plan (1) Pneumonia due to COVID-19 virus: Plan: Initial diagnosis of Covid before April 06, 2021, about 16 days ago as per the son Was in [facility] from 03/16 to 04/08 and did not receive any treatment due to lack of symptoms Received hydroxychloroquine and zinc prescribed by her son Admitted here on April 11, 2021 with increasing symptoms, cough, shortness of breath and desaturation s/p 5 days of remdesivir and s/p dexamethasone stopped 04/18. Repeat x-ray did show improvement of pneumonia She has been feeling much better and as of now saturating well with room air Discussed in detail with the infection control and was advised that she can come off isolation tomorrow morning provided she does not have any more recurrence of desaturation and/or symptoms overnight She did not have any more shortness of breath, cough or sputum for the last 24 hours She has been feeling a lot better today and during examination was not wearing any oxygen As per our discussion with the infectious control she was taken off isolation but is still well follow the hospital guideline for the use of mask She was transferred to medical floor for continuation of care History of prolonged smoking and COPD Chronic cough the current nature of cough is no different from her prior history of cough She does not have any exacerbation of COPD We will get nocturnal pulse oximetry Will get to a stable O2 saturation test before discharge (2) Tachycardia: Plan: This has resolved off steroids and with less agitation We will get a UA and UCS if required to rule out possible UTI No more tachycardia (3) HTN (hypertension): Plan: at goal, cont current medications. (4) Vomiting: Plan: Reported by patient but not documented or reported by nursing staff. She is now improve. Has had an another episode of vomiting this morning-controlled with Zofran Denies any more nausea and/or vomiting (5) Depression: Plan: Cont Welbutrin and paroxetine per home regimen. (6) Obesity: Plan: Lifestyle modifications recommended. (7) DVT prophylaxis: Plan: Lovenox Full code Dispo-She is medically stable for discharge when bed available. SNF auth placed -awaiting auth for transfer. She wants to go to rehab She will have PT and OT evaluation prior to discharge Admission and Anticipated Discharge Date Admission Date: April 11, 2021 Subjective April 21, 2021 The patient was seen and examined in medical telemetry unit and in the Covid room She has been feeling much better and denies any shortness of breath or cough She remains generally weak but has been able to get out of bed and going to the bathroom without any shortness of breath Her saturation remains stable with room air right now 04/22/2021 The patient was seen and examined in medical telemetry unit and in Covid room She denies any symptoms and has been feeling a lot better since yesterday Denies any cough, phlegm, shortness of breath or palpitation at rest During my examination she was not wearing any oxygen Review of Systems Review of Systems: All systems reviewed and are unremarkable except as noted below Respiratory: No shortness of breath at rest Neurologic: Generally weak Physical Exam Physical Exam: Sitting on a chair without any acute distress Constitutional: well developed, well nourished and + obese; not ill appearing Eyes: PERRL, conjunctivae normal, anicteric sclerae ENMT: external ear and nose normal, oropharynx normal Neck: trachea midline, no thyromegaly Respiratory: no respiratory distress and no cough Auscultation: + diminished lung sounds and + crackles (Minimal crackles at the left base.); no wheezes Cardiovascular: Rate/Rhythm: regular rate and regular rhythm; not tachycardic Heart Sounds: normal S1 and normal S2; no murmur Extremities: no edema Gastrointestinal (Abdomen): normal bowel sounds, soft, nontender, no hepatosplenomegaly Neurologic: Alert, awake and oriented x3. Generally weak but no focal neuro deficit Results & Data Results & Data ([facility]) Vital Signs (Past 12 Hours) Vital Signs Temp Pulse Pulse Resp BP BP Pulse Ox 04/22/21 10:25 36.4 C L 60 16 116/73 97 04/22/21 07:28 36.4 C L 105 H 16 111/80 94 Laboratory Results Short CBC 04/21/21 Range/Units 12:48 WBC 14.07 H (4.8-10.8) K/uL Hgb 13.6 (12.0-16.0) g/dL Hct 42.6 (37-47) % Plt Count 204 (130-400) K/uL BMP 04/21/21 12:48 Sodium 140 Potassium 4.5 Chloride 106 Carbon Dioxide 27 BUN 40 H Creatinine 1.15 Glucose 127 H Calcium 8.8 Medications Administered Current Inpatient Medications Acetaminophen (Acetaminophen 325 Mg Tab) 650 mg PO Q4H PRN PRN Reason: pain/fever Stop: 05/11/21 23:47 Last Admin: 04/16/21 11:18 Dose: 650 mg Documented by: Al Hydrox/Mg Hydrox/Simethicone (Aluminum/Magnesium Susp 30 Ml Udc) 30 ml PO Q6H PRN PRN Reason: Dyspepsia Stop: 05/11/21 23:47 Albuterol (Albuterol Hfa 8 Gm Inhaler) 2 puffs INH Q4RWA PRN PRN Reason: Shortness Of Breath Or Wheezing Stop: 05/12/21 00:14 Bupropion HCl (Bupropion Xl 150 Mg Tabcr) 150 mg PO DAILY [facility] Stop: 05/12/21 08:59 Last Admin: 04/22/21 09:49 Dose: 150 mg Documented by: Enoxaparin Sodium (Enoxaparin Inj 40 Mg/0.4 Ml Syr) 40 mg SQ HS [facility] Stop: 05/18/21 20:59 Last Admin: 04/21/21 21:31 Dose: 40 mg Documented by: Miscellaneous (Durezol ~ Order Awaiting Action) 1 ea N/A BID [facility] Stop: 05/17/21 20:59 Last Admin: 04/22/21 09:50 Dose: 1 ea Documented by: Olmesartan (Olmesartan Medoxomil 20 Mg Tab) 20 mg PO DAILY [facility] Stop: 05/12/21 08:59 Last Admin: 04/22/21 09:50 Dose: 20 mg Documented by: Ondansetron HCl (Ondansetron Inj 2 Mg/Ml 2 Ml Vial) 4 mg IV Q6H PRN PRN Reason: Nausea Stop: 05/11/21 23:47 Last Admin: 04/21/21 21:40 Dose: 4 mg Documented by: Paroxetine HCl (Paroxetine Hcl 10 Mg Tab) 10 mg PO DAILY [facility] Stop: 05/12/21 08:59 Last Admin: 04/22/21 09:49 Dose: 10 mg Documented by: Polyethylene Glycol (Polyethylene (Miralax) 17 Gm Pack) 17 gm PO DAILY [facility] Stop: 05/14/21 08:59 Last Admin: 04/22/21 09:46 Dose: Not Given Documented by: Prochlorperazine (Prochlorperazine Maleate 10 Mg Tab) 10 mg PO Q6H PRN PRN Reason: nausea Stop: 05/11/21 23:47 Last Admin: 04/18/21 08:06 Dose: 10 mg Documented by: Vitamin D (Cholecalciferol 400 Units 10 Mcg Tab) [facility] [place]: 05/11/21 23:47 Last Admin: 04/22/21 09:45 Dose: 200 units Documented by: Zinc Sulfate (Zinc Sulfate 220 Mg Capsule) 220 mg PO [facility] Stop: 05/12/21 08:59 Last Admin: 04/22/21 09:49 Dose: 220 mg Documented by: Zolpidem Tartrate (Zolpidem Tartrate 5 Mg Tab) 5 mg PO HS PRN PRN Reason: Sleep Stop: 05/19/21 21:07 Last Admin: 04/21/21 21:31 Dose: 5 mg Documented by:
[2021-04-22] MEDS: ONDANSETRON INJ 2 MG/ML 2 ML VIAL IV PRN (14:18)
[2021-04-22] MEDS: ACETAMINOPHEN 325 MG TAB PO PRN (18:08)
[2021-04-22] MEDS: PANTOprazole 40 MG TAB PO SCH (18:15)
[2021-04-22] MEDS: SODIUM CHLORIDE 0.9% 1000ML 1,000 ML IV SCH (18:17)
[2021-04-22 20:08] LABS: Appearance Urine Cloudy (Clear); Bacteria Urine Automated Negative (Negative); Blood Urine Negative (Negative); Color Urine Dark Yellow; Epithelial Cell Urine Auto >30 /lpf (0-5); Glucose Urine UA Negative (Negative); Ketones Urine Trace (Negative); Leukocyte Esterase Urine Trace (Negative); Nitrite Urine Negative (Negative); Protein Urine Negative (Negative); Specific Gravity Urine 1.023 (1.000-1.030); Urobilinogen Urine Negative (Negative)
[2021-04-22 20:15] LABS: Bilirubin Urine 1+ (Negative)
[2021-04-22 20:26] LABS: RBC Urine Automated 0-4 /hpf (0-4)
[2021-04-22] MEDS: ZOLPIDEM TARTRATE 5 MG TAB PO PRN (21:21)
[2021-04-22] MEDS: ENOXAPARIN INJ 40 MG/0.4 ML SYR SQ SCH (21:22)
[2021-04-23] MEDS: SODIUM CHLORIDE 0.9% 1000ML 1,000 ML IV SCH ×2 (08:12→20:30)
[2021-04-23] MEDS: PANTOprazole 40 MG TAB PO SCH (08:15)
[2021-04-23] MEDS: POLYETHYLENE (MIRALAX) 17 GM PACK PO SCH ×2 (08:15→08:21)
[2021-04-23] MEDS: PARoxetine HCL 10 MG TAB PO SCH (08:15)
[2021-04-23] MEDS: ZINC SULFATE 220 MG CAPSULE PO SCH (08:15)
[2021-04-23] MEDS: OLMESARTAN MEDOXOMIL 20 MG TAB PO SCH (08:15)
[2021-04-23] MEDS: buPROPion XL 150 MG TABCR PO SCH (08:15)
[2021-04-23] MEDS: CHOLECALCIFEROL 400 UNITS 10 MCG TAB PO SCH (08:15)
[2021-04-23 09:41] LABS: Basophils # (auto) 0.02 K/uL (0-0.2); Basophils % (auto) 0.2 %; Eosinophils # (auto) 0.11 K/uL (0-0.5); Eosinophils % (auto) 0.9 %; Hematocrit (blood only) 37.1 % (37-47); Hemoglobin 12.1 g/dL (12.0-16.0); Immature Granulocytes # (auto) 0.16 K/uL (0.00-0.02); Immature Granulocytes % (auto) 1.3 %; Lymphocytes # (auto) 1.98 K/uL (1.2-3.4); Lymphocytes % (auto) 16.7 %; Mean Corpuscular Hemoglobin 30.4 pg (25-34); Mean Corpuscular Hgb Conc 32.6 g/dL (32-36); Mean Corpuscular Volume 93.2 fL (80-100); Mean Platelet Volume 10.7 fL (7.4-10.4); Monocytes # (auto) 0.87 K/uL (0.11-0.59); Monocytes % (auto) 7.3 %; Neutrophils # (auto) 8.75 K/uL (1.4-6.5); Neutrophils % (auto) 73.6 %; Platelet Count 204 K/uL (130-400); RDW Coefficient of Variation 13.8 % (11.5-14.5); RDW Standard Deviation 47.3 fL (36.4-46.3); Red Blood Count 3.98 M/uL (4.2-5.4); White Blood Count 11.89 K/uL (4.8-10.8)
[2021-04-23 10:12] LABS: BUN Creatinine Ratio 30.7 (10-20); Calcium 8.7 mg/dl (8.5-10.1); Creatinine Clr Calc Pharmacy 35.5 ml/min; Est GFR (African American) 42.8 ml/min; Est GFR (Non-African American) 36.9 ml/min; Phosphorus 3.2 mg/dl (2.5-4.9); Potassium 4.6 mmol/L (3.5-5.1)
--- NOTE | 2021-04-23 12:33 | Hospitalist Progress Note ---
Date of Service April 23, 2021 Assessment & Plan (1) Pneumonia due to COVID-19 virus: Plan: Initial diagnosis of Covid before April 06, 2021, about 16 days ago as per the son Was in [facility] from 03/16 to 04/08 and did not receive any treatment due to lack of symptoms Received hydroxychloroquine and zinc prescribed by her son Admitted here on April 11, 2021 with increasing symptoms, cough, shortness of breath and desaturation s/p 5 days of remdesivir and s/p dexamethasone stopped 04/18. Repeat x-ray did show improvement of pneumonia She has been feeling much better and as of now saturating well with room air Discussed in detail with the infection control and was advised that she can come off isolation tomorrow morning provided she does not have any more recurrence of desaturation and/or symptoms overnight She did not have any more shortness of breath, cough or sputum for the last 24 hours She has been feeling a lot better today and during examination was not wearing any oxygen As per our discussion with the infectious control she was taken off isolation but is still well follow the hospital guideline for the use of mask She was transferred to medical floor for continuation of care Normal respiratory symptoms-no cough and no shortness of breath at rest but with minimal ambulation Has been saturating well with room air History of prolonged smoking and COPD Chronic cough the current nature of cough is no different from her prior history of cough She does not have any exacerbation of COPD We will get nocturnal pulse oximetry Refused to go for nocturnal pulse oximetry and she does not require any to do steps before discharge (2) Tachycardia: Plan: This has resolved off steroids and with less agitation We will get a UA and UCS if required to rule out possible UTI No more tachycardia (3) HTN (hypertension): Plan: at goal, cont current medications. Remains stable (4) Vomiting: Plan: Reported by patient but not documented or reported by nursing staff. She is now improve. Has had an another episode of vomiting this morning-controlled with Zofran Denies any more nausea and/or vomiting Has been on Protonix 40 mg daily and that is controlling her nausea and cough (5) Depression: Plan: Cont Welbutrin and paroxetine per home regimen. (6) Obesity: Plan: Lifestyle modifications recommended. (7) DVT prophylaxis: Plan: Lovenox Full code Dispo-She is medically stable for discharge when bed available. SNF auth placed -awaiting auth for transfer. She wants to go to rehab She will have PT and OT evaluation prior to discharge She will be discharged to [place] when approved Admission and Anticipated Discharge Date Admission Date: April 11, 2021 Subjective April 21, 2021 The patient was seen and examined in medical telemetry unit and in the Covid room She has been feeling much better and denies any shortness of breath or cough She remains generally weak but has been able to get out of bed and going to the bathroom without any shortness of breath Her saturation remains stable with room air right now 04/22/2021 The patient was seen and examined in medical telemetry unit and in Covid room She denies any symptoms and has been feeling a lot better since yesterday Denies any cough, phlegm, shortness of breath or palpitation at rest During my examination she was not wearing any oxygen 04/23/2021 The patient was seen and examined in medical floor She has been feeling much better and does not require any oxygen to maintain saturation Her nausea and cough are better too He has had physical therapy and recommended rehab Review of Systems Review of Systems: All systems reviewed and are unremarkable except as noted below Respiratory: No shortness of breath at rest Neurologic: Generally weak Physical Exam Physical Exam: Sitting on a chair without any acute distress Constitutional: well developed, well nourished and + obese; not ill appearing Eyes: PERRL, conjunctivae normal, anicteric sclerae ENMT: external ear and nose normal, oropharynx normal Neck: trachea midline, no thyromegaly Respiratory: no respiratory distress and no cough Auscultation: + diminished lung sounds and + crackles (Minimal crackles at the left base.); no wheezes Cardiovascular: Rate/Rhythm: regular rate and regular rhythm; not tachycardic Heart Sounds: normal S1 and normal S2; no murmur Extremities: no edema Gastrointestinal (Abdomen): normal bowel sounds, soft, nontender, no hepatosplenomegaly Musculoskeletal: No acute arthritis in any joint Neurologic: Alert, awake and oriented x3. No focal sensory and/or motor deficit appreciated but she is generally weak Lymphatic: no cervical or axillary lymphadenopathy Results & Data Results & Data ([facility]) Vital Signs (Past 12 Hours) Vital Signs Temp Pulse Resp BP Pulse Ox 04/23/21 08:29 36.6 C 98 H 18 138/81 95 Laboratory Results Short CBC 04/23/21 Range/Units 09:22 WBC 11.89 H (4.8-10.8) K/uL Hgb 12.1 (12.0-16.0) g/dL Hct 37.1 (37-47) % Plt Count 204 (130-400) K/uL BMP 04/23/21 09:22 Sodium 139 Potassium 4.6 Chloride 109 H Carbon Dioxide 26 BUN 42 H Creatinine 1.36 H Glucose 108 H Calcium 8.7 Urine 04/22/21 Range/Units 19:50 Urine Color Dark Yellow Urine Appearance Cloudy A (Clear) Urine pH 5.0 (4.5-7.5) Ur Specific [place] 1.023 (1.000-1.030) Urine Protein Negative (Negative) Urine Glucose (UA) Negative (Negative) Medications Administered Current Inpatient Medications Acetaminophen (Acetaminophen 325 Mg Tab) 650 mg PO Q4H PRN PRN Reason: pain/fever Stop: 05/11/21 23:47 Last Admin: 04/22/21 18:08 Dose: 650 mg Documented by: Al Hydrox/Mg Hydrox/Simethicone (Aluminum/Magnesium Susp 30 Ml Udc) 30 ml PO Q6H PRN PRN Reason: Dyspepsia Stop: 05/11/21 23:47 Albuterol (Albuterol Hfa 8 Gm Inhaler) 2 puffs INH Q4RWA PRN PRN Reason: Shortness Of Breath Or Wheezing Stop: 05/12/21 00:14 Bupropion HCl (Bupropion Xl 150 Mg Tabcr) 150 mg PO DAILY [facility] Stop: 05/12/21 08:59 Last Admin: 04/23/21 08:15 Dose: 150 mg Documented by: Enoxaparin Sodium (Enoxaparin Inj 40 Mg/0.4 Ml Syr) 40 mg SQ HS [facility] Stop: 05/18/21 20:59 Last Admin: 04/22/21 21:22 Dose: 40 mg Documented by: Sodium Chloride (Nss 1000ml) 1,000 mls @ 80 mls/hr IV .[id number] [facility] Stop: 04/24/21 07:14 Last Admin: 04/23/21 08:12 Dose: 80 mls/hr Documented by: Miscellaneous (Durezol ~ Order Awaiting Action) 1 ea N/A BID [facility] Stop: 05/17/21 20:59 Last Admin: 04/23/21 08:15 Dose: Not Given Documented by: Olmesartan (Olmesartan Medoxomil 20 Mg Tab) 20 mg PO DAILY [facility] Stop: 05/12/21 08:59 Last Admin: 04/23/21 08:15 Dose: 20 mg Documented by: Ondansetron HCl (Ondansetron Inj 2 Mg/Ml 2 Ml Vial) 4 mg IV Q6H PRN PRN Reason: Nausea Stop: 05/11/21 23:47 Last Admin: 04/22/21 14:18 Dose: 4 mg Documented by: Pantoprazole Sodium (Pantoprazole 40 Mg Tab) 40 mg PO QAM [facility] Stop: 05/22/21 16:44 Last Admin: 04/23/21 08:15 Dose: 40 mg Documented by: Paroxetine HCl (Paroxetine Hcl 10 Mg Tab) 10 mg PO DAILY [facility] Stop: 05/12/21 08:59 Last Admin: 04/23/21 08:15 Dose: 10 mg Documented by: Polyethylene Glycol (Polyethylene (Miralax) 17 Gm Pack) 17 gm PO DAILY [facility] Stop: 05/14/21 08:59 Last Admin: 04/23/21 08:21 Dose: 17 gm Documented by: Prochlorperazine (Prochlorperazine Maleate 10 Mg Tab) 10 mg PO Q6H PRN PRN Reason: nausea Stop: 05/11/21 23:47 Last Admin: 04/18/21 08:06 Dose: 10 mg Documented by: Vitamin D (Cholecalciferol 400 Units 10 Mcg Tab) 200 units PO QAM [facility] Stop: 05/11/21 23:47 Last Admin: 04/23/21 08:15 Dose: 200 units Documented by: Zinc Sulfate (Zinc Sulfate 220 Mg Capsule) 220 mg PO QAM [facility] Stop: 05/12/21 08:59 Last Admin: 04/23/21 08:15 Dose: 220 mg Documented by: Zolpidem Tartrate (Zolpidem Tartrate 5 Mg Tab) 5 mg PO HS PRN PRN Reason: Sleep Stop: 05/19/21 21:07 Last Admin: 04/22/21 21:21 Dose: 5 mg Documented by:
[2021-04-23] MEDS: MULTIVITAMIN TAB PO SCH (16:41)
[2021-04-23] MEDS: ENOXAPARIN INJ 40 MG/0.4 ML SYR SQ SCH (20:31)
[2021-04-23] MEDS: ZOLPIDEM TARTRATE 5 MG TAB PO PRN (20:49)
[2021-04-24] MEDS: PARoxetine HCL 10 MG TAB PO SCH (08:31)
[2021-04-24] MEDS: OLMESARTAN MEDOXOMIL 20 MG TAB PO SCH (08:31)
[2021-04-24] MEDS: MULTIVITAMIN TAB PO SCH (08:31)
[2021-04-24] MEDS: ZINC SULFATE 220 MG CAPSULE PO SCH (08:31)
[2021-04-24] MEDS: POLYETHYLENE (MIRALAX) 17 GM PACK PO SCH (08:31)
[2021-04-24] MEDS: CHOLECALCIFEROL 400 UNITS 10 MCG TAB PO SCH (08:31)
[2021-04-24] MEDS: PANTOprazole 40 MG TAB PO SCH (08:32)
[2021-04-24] MEDS: buPROPion XL 150 MG TABCR PO SCH (08:32)
[2021-04-24] MEDS: ACETAMINOPHEN 325 MG TAB PO PRN (08:33)
--- NOTE | 2021-04-24 11:23 | Hospitalist Progress Note ---
Date of Service April 24, 2021 Assessment & Plan (1) Pneumonia due to COVID-19 virus: Plan: Initial diagnosis of Covid before April 06, 2021, about 16 days ago as per the son Was in [facility] from 03/16 to 04/08 and did not receive any treatment due to lack of symptoms Received hydroxychloroquine and zinc prescribed by her son Admitted here on April 11, 2021 with increasing symptoms, cough, shortness of breath and desaturation s/p 5 days of remdesivir and s/p dexamethasone stopped 04/18. Repeat x-ray did show improvement of pneumonia She has been feeling much better and as of now saturating well with room air Discussed in detail with the infection control and was advised that she can come off isolation tomorrow morning provided she does not have any more recurrence of desaturation and/or symptoms overnight She did not have any more shortness of breath, cough or sputum for the last 24 hours She has been feeling a lot better today and during examination was not wearing any oxygen As per our discussion with the infectious control she was taken off isolation but is still well follow the hospital guideline for the use of mask She was transferred to medical floor for continuation of care Normal respiratory symptoms-no cough and no shortness of breath at rest but with minimal ambulation Has been saturating well with room air Denies any more symptoms of cough and/or shortness of breath History of prolonged smoking and COPD Chronic cough the current nature of cough is no different from her prior history of cough She does not have any exacerbation of COPD We will get nocturnal pulse oximetry Refused to go for nocturnal pulse oximetry and she does not require any to do steps before discharge (2) Tachycardia: Plan: This has resolved off steroids and with less agitation We will get a UA and UCS if required to rule out possible UTI-urine culture is negative No more tachycardia (3) HTN (hypertension): Plan: at goal, cont current medications. Remains stable (4) Vomiting: Plan: Reported by patient but not documented or reported by nursing staff. She is now improve. Has had an another episode of vomiting this morning-controlled with Zofran Denies any more nausea and/or vomiting Has been on Protonix 40 mg daily and that is controlling her nausea and cough No more nausea and or vomiting (5) Depression: Plan: Cont Welbutrin and paroxetine per home regimen. (6) Obesity: Plan: Lifestyle modifications recommended. (7) DVT prophylaxis: Plan: Lovenox Full code Dispo-She is medically stable for discharge when bed available. SNF auth placed -awaiting auth for transfer. She wants to go to rehab She will be transferred to [place] this afternoon Discussed with the son Admission and Anticipated Discharge Date Admission Date: April 11, 2021 Subjective April 21, 2021 The patient was seen and examined in medical telemetry unit and in the Covid room She has been feeling much better and denies any shortness of breath or cough She remains generally weak but has been able to get out of bed and going to the bathroom without any shortness of breath Her saturation remains stable with room air right now 04/22/2021 The patient was seen and examined in medical telemetry unit and in Covid room She denies any symptoms and has been feeling a lot better since yesterday Denies any cough, phlegm, shortness of breath or palpitation at rest During my examination she was not wearing any oxygen 04/23/2021 The patient was seen and examined in medical floor She has been feeling much better and does not require any oxygen to maintain saturation Her nausea and cough are better too He has had physical therapy and recommended rehab 04/24/2021 The patient was seen and examined in medical floor She has been feeling much better today Denies any symptoms of cough, shortness of breath or pain Review of Systems Review of Systems: All systems reviewed and are unremarkable except as noted below Respiratory: No shortness of breath at rest Neurologic: Generally weak Physical Exam Physical Exam: Lying in bed without any acute distress Constitutional: well developed, well nourished and + obese; not ill appearing Eyes: PERRL, conjunctivae normal, anicteric sclerae ENMT: external ear and nose normal, oropharynx normal Neck: trachea midline, no thyromegaly Respiratory: no respiratory distress and no cough Auscultation: + diminished lung sounds; no crackles (Minimal crackles at the left base.) and no wheezes Cardiovascular: Rate/Rhythm: regular rate and regular rhythm; not tachycardic Heart Sounds: normal S1 and normal S2; no murmur Extremities: no edema Gastrointestinal (Abdomen): normal bowel sounds, soft, nontender, no hepatosplenomegaly Musculoskeletal: No acute arthritis in any joint Neurologic: Alert, awake and oriented x3. Generally weak but no focal sensory and motor deficit appreciated Psychiatric: A+Ox3, euthymic affect Lymphatic: no cervical or axillary lymphadenopathy Results & Data Results & Data ([facility]) Vital Signs (Past 12 Hours) Vital Signs Temp Pulse Resp BP Pulse Ox 04/24/21 07:33 36.4 C L 87 18 130/84 94 Medications Administered Current Inpatient Medications Acetaminophen (Acetaminophen 325 Mg Tab) 650 mg PO Q4H PRN PRN Reason: pain/fever Stop: 05/11/21 23:47 Last Admin: 04/24/21 08:33 Dose: 650 mg Documented by: Al Hydrox/Mg Hydrox/Simethicone (Aluminum/Magnesium Susp 30 Ml Udc) 30 ml PO Q6H PRN PRN Reason: Dyspepsia Stop: 05/11/21 23:47 Albuterol (Albuterol Hfa 8 Gm Inhaler) 2 puffs INH Q4RWA PRN PRN Reason: Shortness Of Breath Or Wheezing Stop: 05/12/21 00:14 Bupropion HCl (Bupropion Xl 150 Mg Tabcr) 150 mg PO DAILY [facility] Stop: 05/12/21 08:59 Last Admin: 04/24/21 08:32 Dose: 150 mg Documented by: Enoxaparin Sodium (Enoxaparin Inj 40 Mg/0.4 Ml Syr) 40 mg SQ HS [facility] Stop: 05/18/21 20:59 Last Admin: 04/23/21 20:31 Dose: 40 mg Documented by: Miscellaneous (Durezol ~ Order Awaiting Action) 1 ea N/A BID [facility] Stop: 05/17/21 20:59 Last Admin: 04/24/21 08:33 Dose: Not Given Documented by: Multivitamins (Multivitamin Tab) 1 tab PO QAM [facility] Stop: 05/23/21 14:14 Last Admin: 04/24/21 08:31 Dose: 1 tab Documented by: Olmesartan (Olmesartan Medoxomil 20 Mg Tab) 20 mg PO DAILY [facility] Stop: 05/12/21 08:59 Last Admin: 04/24/21 08:31 Dose: 20 mg Documented by: Ondansetron HCl (Ondansetron Inj 2 Mg/Ml 2 Ml Vial) 4 mg IV Q6H PRN PRN Reason: Nausea Stop: 05/11/21 23:47 Last Admin: 04/22/21 14:18 Dose: 4 mg Documented by: Pantoprazole Sodium (Pantoprazole 40 Mg Tab) 40 mg PO QAM [facility] Stop: 05/22/21 16:44 Last Admin: 04/24/21 08:32 Dose: 40 mg Documented by: Paroxetine HCl (Paroxetine Hcl 10 Mg Tab) 10 mg PO DAILY [facility] Stop: 05/12/21 08:59 Last Admin: 04/24/21 08:31 Dose: 10 mg Documented by: Polyethylene Glycol (Polyethylene (Miralax) 17 Gm Pack) 17 gm PO DAILY [facility] Stop: 05/14/21 08:59 Last Admin: 04/24/21 08:31 Dose: 17 gm Documented by: Prochlorperazine (Prochlorperazine Maleate 10 Mg Tab) 10 mg PO Q6H PRN PRN Reason: nausea Stop: 05/11/21 23:47 Last Admin: 04/18/21 08:06 Dose: 10 mg Documented by: Vitamin D (Cholecalciferol 400 Units 10 Mcg Tab) 200 units PO QAM [facility] Stop: 05/11/21 23:47 Last Admin: 04/24/21 08:31 Dose: 200 units Documented by: Zinc Sulfate (Zinc Sulfate 220 Mg Capsule) 220 mg PO QAM [facility] Stop: 05/12/21 08:59 Last Admin: 04/24/21 08:31 Dose: 220 mg Documented by: Zolpidem Tartrate (Zolpidem Tartrate 5 Mg Tab) 5 mg PO HS PRN PRN Reason: Sleep Stop: 05/19/21 21:07 Last Admin: 04/23/21 20:49 Dose: 5 mg Documented by:
--- NOTE | 2021-04-26 08:12 | Discharge Summary ---
Date of Service April 26, 2021 Admission HPI Per Admitting Provider 80 yo female c PMH of Anxiety, HTN, Obesity, OSAS, and COVID-19 who presents to the Emergency Room with complaints of nausea. This started over the last few days and is persisting despite compazine. The patient also notes the following associated symptoms, cough and weakness. The patient has been taking hydroxychloroquine and zinc which was prescribed by her son. She noted diarrhea which changed to constipation. The patient was diagnosed with Covid last week and admitted to the [facility] on 04/06. There she had N/V/D and was DCd on 04/08. She never required Dex or Remdesivir because her O2 sats were 94% or greater. It was reported by EMS prior to arriving at [facility] that she was 88%, but all POX at [facility] were in the mid to high 90s. She reports that since Friday she's been declining. PMH-Anxiety, HTN, Obesity, Covid PSH-Breast Biopsy Soc-Former tobacco, quit January 2004, Occas etoh FH-Sister, Daughter, and Niece all c Breast CA Admission Exam Per Admitting Provider Physical Exam: Physical Exam Gen-AAO x 3, NAD, Afebrile, Audible wheeze Head-NCAT, EOMI, PERRLA, Anicteric Sclera, No Posterior Pharyngeal Erythema Neck-Supple, No JVD, No Thyromegaly, No Masses, No LAD, No Bruits Lungs-Coarse BS Bilaterally, No Rales, No Rhonchi, + Wheezing, No Crepitus Chest-No S4, +S1, +S2, No S3, No Murmurs, No Rubs, No Gallops, No Ectopy Abdomen-Soft, Bowel Sounds Present, Non Tender, Non Distended, No Hepatomegaly, No Splenomegaly, No Palpable Masses, No Rebound, No Rigidity, No Guarding Musculoskeletal-Full Range of Motion Bilaterally, No CVAT Extremities-No Cyanosis, No Clubbing, No Edema Nuero-Cranial Nerves II-XII grossly intact, Motor WNL, DTRs WNL, Strength WNL, Non Focal Psych-Normal Mood Principal Diagnosis Pneumonia due to COVID-19 virus,off isolation. COPD, hypertension, hiatal hernia with reflux disease, depression Discharge Exam Constitutional well developed, well nourished and + obese; not ill appearing Eyes PERRL, conjunctivae normal, anicteric sclerae ENMT external ear and nose normal, oropharynx normal Neck trachea midline, no thyromegaly Respiratory no respiratory distress and no cough Auscultation: + diminished lung sounds; no crackles (Minimal crackles at the left base.) and no wheezes Cardiovascular Rate/Rhythm: regular rate and regular rhythm; not tachycardic Heart Sounds: normal S1 and normal S2; no murmur Extremities: no edema Gastrointestinal (Abdomen) normal bowel sounds, soft, nontender, no hepatosplenomegaly Psychiatric A+Ox3, euthymic affect Lymphatic no cervical or axillary lymphadenopathy Discharge Data Allergies Allergy/AdvReac Type Severity Reaction Status Date / Time codeine Allergy Mild Unknown Verified 04/11/21 16:08 Consultations 04/11/21 16:34 ED Decision to Admit Stat Ordered Studies 04/11/21 16:31 CT angio chest PE protocol Stat Hospital Course (1) Pneumonia due to COVID-19 virus: Initial diagnosis of Covid before April 06, 2021, about 16 days ago as per the son Was in [facility] from 03/16 to 04/08 and did not receive any treatment due to lack of symptoms Received hydroxychloroquine and zinc prescribed by her son Admitted here on April 11, 2021 with increasing symptoms, cough, shortness of breath and desaturation s/p 5 days of remdesivir and s/p dexamethasone stopped 04/18. Repeat x-ray did show improvement of pneumonia She has been feeling much better and as of now saturating well with room air Discussed in detail with the infection control and was advised that she can come off isolation tomorrow morning provided she does not have any more recurrence of desaturation and/or symptoms overnight She did not have any more shortness of breath, cough or sputum for the last 24 hours She has been feeling a lot better today and during examination was not wearing any oxygen As per our discussion with the infectious control she was taken off isolation but is still well follow the hospital guideline for the use of mask She was transferred to medical floor for continuation of care Normal respiratory symptoms-no cough and no shortness of breath at rest but with minimal ambulation Has been saturating well with room air Denies any more symptoms of cough and/or shortness of breath History of prolonged smoking and COPD Chronic cough the current nature of cough is no different from her prior history of cough She does not have any exacerbation of COPD We will get nocturnal pulse oximetry Refused to go for nocturnal pulse oximetry and she does not require any to do steps before discharge (2) Tachycardia: This has resolved off steroids and with less agitation We will get a UA and UCS if required to rule out possible UTI-urine culture is negative No more tachycardia (3) HTN (hypertension): at goal, cont current medications. Remains stable (4) Vomiting: Reported by patient but not documented or reported by nursing staff. She is now improve. Has had an another episode of vomiting this morning-controlled with Zofran Denies any more nausea and/or vomiting Has been on Protonix 40 mg daily and that is controlling her nausea and cough No more nausea and or vomiting (5) Depression: Cont Welbutrin and paroxetine per home regimen. (6) Obesity: Lifestyle modifications recommended. (7) DVT prophylaxis: Lovenox Full code Dispo-She is medically stable for discharge when bed available. SNF auth placed -awaiting auth for transfer. She wants to go to rehab She will be transferred to [place] this afternoon Discussed with the son Total Time Total Time Spent Total Time Spent (In Minutes): 35 minutes Discharge Plan Discharge Items Patient Disposition: Transfer Custodial Fac Reason For Visit: COVID 19 PNA Discharge Diagnosis: Pneumonia due to COVID-19 virus-off isolation. COPD, hypertension, hiatal hernia with reflux disease, depression Condition on Discharge: Good Activity: Resume your previous activity Non-emergency contact: Primary Care Provider Call non-emergency contact if: you have any medication questions and your symptoms worsen Follow-up/Referrals: Omar James [Primary Care Provider] - (Please make an appointment with your primary care provider within 7 days following discharge from the facility) Diet: Regular Addtl Attending Provider Instructions: Please take precautions to avoid falls Please avoid taking any narcotics to avoid confusion and constipation You no longer require isolation due to COVID-19 infection but follow the guidelines as below. Coronavirus disease 2019 (COVID-19) is a virus that causes a respiratory illness. It is caused by a coronavirus called 2019 novel coronavirus (2019- nCoV). There are many types of coronavirus. Coronaviruses are a very common cause of bronchitis. They may sometimes cause lung infection(pneumonia). Symptoms can range from mild to severe respiratory illness. These viruses are also foundin some animals. COVID-19 was first found in people in [facility], in late 2019. In 2020, several cases of COVID-19 have been confirmed in the [place] Public health officials are working to find the source. How the virus spreads is not yet fully known. It may be spread through droplets of fluid that a person coughs or sneezes into the air. It may be spread if you touch a surface with virus on it, such as a handle or object, and then touch your mouth. What are the symptoms of COVID-19? Some people have no symptoms or mild symptoms. Symptoms may appear 2 to 14 days after contact with the virus. Symptoms can include: Fever Coughing Trouble breathing What are possible complications from COVID-19? In many cases, this virus can cause infection (pneumonia) in both lungs. In some cases, this can cause . How is COVID-19 diagnosed? Your healthcare provider will ask about your symptoms. He or she will also ask about your recent travel and contact with sick people. Testing for the virus is only done through the CDC. If yourhealthcare provider thinks you may have COVID- 19, he or she will work with your local health department and the CDC on testing. Follow all instructions from your healthcare provider. COVID-19 is diagnosed by: Nasal and throat swab. A cotton-tipped swab is wiped inside your nose or throat. This is done to check for viruses in your nasal mucus. Sputum culture. A small sample of mucus coughed from your lungs (sputum) is collected if you have a cough. It is checked for the virus. How is COVID-19 treated? There is currently no medicine to treat the virus. Treatment is done to help your body while it fights the virus. This is known as supportive care. Supportive care may include: Pain medicine. These include acetaminophen and ibuprofen. They are used to help ease pain and reduce fever. Bed rest. This helps your body fight the illness. For severe illness, you may need to stay in the hospital. Care during severe illness may include: IV (intravenous) fluids.These are given through a vein to help keep your body hydrated. Oxygen. Supplemental oxygen or ventilation with a breathing machine (ventilator) may be given. This is done to keep enough oxygen in your body. Are you at risk for COVID-19? If youve been to a place where people have been sick with this virus, you are at risk for infection. You are at risk if you: Recently traveled to an affected area Had contact with a sick person who recently traveled to this area Had contact with a person who was diagnosed with COVID-19 How can COVID-19 be prevented? There is no vaccine yet. The best prevention is to not have contact with the virus. The CDC advises that people should not travel to areas where there are COVID-19 outbreaks right now for any reason that is not urgent. To help prevent spreading the infection, wash your hands often, or use an alcohol-basedhand project manager senior. If you are in an area with COVID-19: Wash your hands often. Or use an alcohol-based hand project manager senior often. Only touch your eyes, nose, or mouth with clean hands. Dont have contact with people who are sick. Follow local instructions about being in public. For example, you may be told to not use public transport for a period of time. Stay away from markets that have live or animals. Wash your hands after touching any animals. Don't touch animals that may be sick. Dont share eating or drinking tools with sick people. Dont kiss someone who is sick. Clean surfaces often with disinfectant. If you were in an area with COVID-19 in the last 14 days: Call your healthcare provider. He or she can talk with local health staff to see what action may be needed. Follow all instructions from your provider. Take your temperature every morning and evening for at least 14 days. This is to check for fever. Keep a record of the readings. Keep watch for symptoms of the virus. Tell your provider right away if you have symptoms. If you were in an area with COVID-19 and have a fever or other symptoms: Dont panic. Keep in mind that other illnesses can cause similar symptoms. Stay away from work, school, and public places. Limit physical contact with family members. Don't kiss anyone or share eating or drinking utensils. Clean surfaces you touch with disinfectant. This is to help prevent the virus from spreading. Call your healthcare provider. Explain that you have been exposed to COVID-19 and have symptoms. Do this before going to any hospital. Wait for instructions. Keep in mind that healthcare staff may wear protective equipment such as masks, gowns, gloves, and eye protection. You may be put in a separate room. This is to prevent the possible virus from spreading. Tell the healthcare staff about recent travel. This includes local travel on public transport. Staff may need to find other people you have been in contact with. Follow all instructions the healthcare staff give you. If you have been diagnosed with COVID-19 Follow all instructions from your healthcare provider. Dont leave your home, except to get medical care. Call your healthcare providers office before going. They can prepare and give you instructions. This will help prevent the virus from spreading. Dont go to work, school, or public areas. Dont use public transport or taxis. Stay away from other people in your home. Have them wear face masks around you. Dont share household items or food. Wear a face mask if you can. This includes at home or in a medical facility. Cover your face with a tissue when you cough or sneeze. Throw the tissue away. Wash your hands. Wash your hands often. Caregivers should: Follow all instructions from healthcare staff. Wear a face mask and protective clothing as advised. Wash hands often. Keep track of the sick persons symptoms. Clean surfaces, fabrics, and laundry thoroughly. Keep other people away from the sick person. When to call your healthcare provider Call your healthcare provider: If youve recently traveled and have symptoms If you have been diagnosed with COVID-19 and your symptoms are worse To learn more To find out more about COVID-19, visit the CDC website at www.cdc.gov/coronavirus/2019-ncov/index.html. [employer]. [address] [place] [address]. All rights reserved. This information is not intended as a substitute for professional medical care. Always follow your healthcare professional's instructions. This information has been adapted from [employer] Pending Studies at Discharge: No Stand-Alone Forms: [facility] Skilled Items Patient informed of condition?: Yes DNR: No Discharge Level of Care: Skilled Communicable Disease: No Discharge Prognosis: Stable Lines: None Urinary Catheter: No Medications and DC Order Prescriptions: New pantoprazole 40 mg Tablet,Delayed Release (Dr/Ec) 40 mg PO QAM 30 Days Qty: 30 RF: 0 cholecalciferol (vitamin D3) [Vitamin D3] 10 mcg (400 unit) Tablet 200 unit PO QAM 30 Days Qty: 30 RF: 0 zinc sulfate [Orazinc] 50 mg zinc (220 mg) Capsule 50 mg PO QAM 30 Days Qty: 30 RF: 0 multivitamin with folic acid [Daily-Niraj (with folic acid)] 400 mcg Tablet 1 tab PO QAM 30 Days Qty: 30 RF: 0 Continued paroxetine HCl 10 mg tablet 10 mg PO DAILY RF: 0 prochlorperazine maleate 10 mg tablet 10 mg PO Q6 RF: 0 olmesartan 20 mg tablet 20 mg PO DAILY RF: 0 bupropion HCl 150 mg tablet extended release 24 hr 150 mg PO DAILY RF: 0 Durezol 0.05 % drops 1 drp OPL UD RF: 0 Discontinued hydroxychloroquine 200 mg tablet 200 mg PO BID RF: 0 Discharge Orders: Discharge Order (Routine); Ordered 04/24/21 Ordered By: Mildred Salinas Admission Data Admit Date/Time: 04/11/21 17:37 Attending Provider: Mildred Salinas Admit Provider: Rodriguez Celestin Primary Care Provider: Omar James [facility] ; Alix Blandon ; Rodriguez Celestin Other Interventions: Discharge Summary Assessment (RN) Last Done: 04/24/21 12:20
== END 2021-04-24 14:14 | DRG 177 ==
LOC: ED 12:46 → 2W 17:37 → SUATTDRO 17:37 → 2W 23:02 → 3E 04-22 10:59